=== PATIENT | female | born 1960 | race Caucasian/White ===

== ENCOUNTER → 2018-04-21 09:43 | Outpatient (CLI) | payer OTHER, SELFPAY ==
--- NOTE | 2018-04-21 10:15 | EKG12_ITS ---
Test Reason : PRE OP Blood Pressure : / mmHG Vent. Rate : 069 BPM Atrial Rate : 069 BPM P-R Int : 158 ms QRS Dur : 078 ms QT Int : 426 ms P-R-T Axes : 067 008 003 degrees QTc Int : 456 ms Normal sinus rhythm Normal ECG Confirmed by PANKAJ MITCHELL, BIRDIE ([id number]), avid editor HARMONY GARCIA ([id number] on 04/25/2018 10:53:22 AM Referred By: Jourdan Alas Confirmed By:BIRDIE LIRA MD
[2018-04-21 11:43] LABS: Hematocrit 44.4 % (37-47); Hemoglobin 14.7 g/dl (12.0-15.0); Mean Corp Hgb Conc 33.1 g/gl (32-36); Mean Corpuscular Hgb 29.3 pg (27.0-32.0); Mean Corpuscular Volume 88.4 fL (81-99); Mean Platelet Vol. 11.1 fl (6.2-12.0); Platelet Count 276 K/mm3 (150-450); RBC Distribution Width CV 13.4 % (11.6-14.6); RBC Distribution Width SD 42.8 fl (35.1-43.9); Red Blood Count 5.02 M/mm3 (4.2-5.4)
[2018-04-21 11:44] LABS: Scan Indicated on CBC? Y/N NO
[2018-04-21 12:06] LABS: Anion Gap 7 (5-15); BUN 16 mg/dL (7-18); BUN/Creat Ratio 22.5 RATIO (10-20); Chloride 105 mmol/L (98-107); Creatinine, Serum 0.71 mg/dL (0.55-1.02); EST Glomerular Filtration Rate 89 mL/min (>60); Est Glom Filt Rate - Afr Amer 108 mL/min (>60); Glucose 86 mg/dL (74-106); Potassium 4.4 mmol/L (3.5-5.1); Sodium Level 141 mmol/L (136-145)
== END ==
PROVIDERS: Family Provider Internal Medicine; PCP Internal Medicine; Referring Provider Physician Assistant; Visit Provider Physician Assistant
DX: Z01.818 Encounter for other preprocedural examination (principal); Z01.810 Encounter for preprocedural cardiovascular examination
CPT/HCPCS: 36415; 80048; 85027; 93005

== ENCOUNTER → 2019-08-15 12:09 | Outpatient (CLI) | payer OTHER, SELFPAY ==
--- NOTE | 2019-08-15 12:12 | CT_ITS ---
STUDY: CT MAXILLOFACIAL SINUSES REASON FOR EXAM: Female, 59 years old. CHRONIC SINUSITIS, HX BROKEN NOSE -- GABE PROTOCOL RADIATION DOSAGE (If Supplied By Facility): CTDIvol = ( 33.06 ) mGy, DLP = ( 738.81 ) mGycm TECHNIQUE: The patient was scanned in a multi detector CT scanner. High resolution axial imaging was performed without the administration of intravenous contrast material. Sagittal and coronal images were reconstructed. Individualized dose optimization techniques were used for this CT. COMPARISON: None. FINDINGS: FRONTAL SINUSES: Normal aeration, without mucosal inflammatory disease. ETHMOIDAL SINUSES: Normal aeration, without mucosal inflammatory disease. MAXILLARY SINUSES: Partial opacification of the right maxillary sinus. SPHENOIDAL SINUSES: Minimal mucosal thickening along the posterior aspect of the sphenoid sinus on the left side. Mucosal thickening of the right ostiomeatal complex. Normal bilateral middle turbinates. There is hypertrophy of the bilateral inferior nasal turbinates. There is a left sided nasal septal deviation, but without a nasal septal spur. There is patency of the bilateral nasal airways. The visualized osseous structures are normal. The visualized bilateral orbital contents are normal. CT/Sinus/Facial Bone IMPRESSION: Partial opacification of the right maxillary sinus and compromise of the right ostiomeatal complex. Mild degree of the nasal septal deviation towards the left side of the midline. Minimal mucosal thickening along the posterolateral aspect of the sphenoid sinus on the left side. Electronically Signed: Josue Sanchez, at 15:14 EST , Service support ,
== END ==
PROVIDERS: PCP Internal Medicine; Referring Provider Otolaryngology; Visit Provider Otolaryngology
DX: J32.2 Chronic ethmoidal sinusitis (principal)
CPT/HCPCS: 70486

== ENCOUNTER → 2019-09-11 13:19 | Outpatient (CLI) | payer OTHER, SELFPAY ==
[2019-09-11 13:38] LABS: Absolute Lymphocyte Count 2.91 X10^3/uL (0.83-4.51); Absolute Neutrophil Count 4.3 X10^3/uL (2.0-7.7); Basophil# 0.07 X10^3/uL; Basophil% 0.9 % (0-1); Eosinophil# 0.09 X10^3/uL; Eosinophils% 1.1 % (0-5); Hematocrit 43.8 % (37-47); Hemoglobin 14.2 g/dL (12.0-15.0); Lymphocyte # 2.91 X10^3/ul (4.0); Mean Corp Hgb Conc 32.4 g/dL (32-36); Mean Corpuscular Hgb 28.6 pg (27.0-32.0); Mean Corpuscular Volume 88.1 fL (81-99); Monocyte# 0.51 X10^3/uL; Monocyte% 6.5 % (0-10); NRBC Flagged by Analyzer 0 % (0-5); Neutrophil # 4.25 X10^3/uL (2.7-7.7); Platelet Count 288 K/mm3 (150-450); RBC Distribution Width CV 12.6 % (11.6-14.6); RBC Distribution Width SD 40.5 fl (35.1-43.9); Red Blood Count 4.97 M/mm3 (4.2-5.4); White Blood Count 7.9 K/mm3 (4.4-11.0)
--- NOTE | 2019-09-11 13:39 | EKG12_ITS ---
Test Reason : PRE-OP Blood Pressure : / mmHG Vent. Rate : 078 BPM Atrial Rate : 078 BPM P-R Int : 156 ms QRS Dur : 072 ms QT Int : 376 ms P-R-T Axes : 054 -21 000 degrees QTc Int : 428 ms Normal sinus rhythm Nonspecific ST and T wave abnormality Abnormal ECG Confirmed by PANKAJ MITCHELL, BIRDIE ([id number]), graphics editor MARIA C GRACE ([id number]) on 09/12/2019 10:33:25 AM Referred By: Veronica Randle Confirmed By:BIRDIE LIRA MD
[2019-09-11 13:58] LABS: Anion Gap 7 (5-15); BUN 15 mg/dL (7-18); BUN/Creat Ratio 15.8 RATIO (10-20); Calcium,Total 8.6 mg/dL (8.5-10.1); Chloride 105 mmol/L (98-107); Creatinine, Serum 0.95 mg/dL (0.55-1.02); EST Glomerular Filtration Rate 63 mL/min (>60); Est Glom Filt Rate - Afr Amer 77 mL/min (>60); Glucose 115 mg/dL (74-106); Potassium 3.9 mmol/L (3.5-5.1); Sodium Level 141 mmol/L (136-145)
== END ==
PROVIDERS: PCP Internal Medicine; Referring Provider Registered Nurse; Visit Provider Registered Nurse
DX: Z01.818 Encounter for other preprocedural examination (principal)
CPT/HCPCS: 36415; 80048; 85025; 93005

== ENCOUNTER → 2020-05-27 09:01 | Outpatient (CLI) | payer OTHER, SELFPAY ==
[2017-03-01 07:27] VITALS: BMI 28.1
[2020-05-27 09:29] LABS: Absolute Lymphocyte Count 2.74 X10^3/uL (0.83-4.51); Absolute Neutrophil Count 3.4 X10^3/uL (2.0-7.7); Basophil# 0.06 X10^3/uL; Basophil% 0.9 % (0-1); Eosinophil# 0.08 X10^3/uL; Eosinophils% 1.2 % (0-5); Hematocrit 46.6 % (37-47); Hemoglobin 14.5 g/dL (12.0-15.0); Lymphocyte # 2.74 X10^3/ul (4.0); Lymphocyte % 40.7 % (19-41); Mean Corp Hgb Conc 31.1 g/dL (32-36); Mean Corpuscular Hgb 28.2 pg (27.0-32.0); Mean Corpuscular Volume 90.5 fL (81-99); Mean Platelet Vol. 10.4 fl (6.2-12.0); Monocyte# 0.49 X10^3/uL; Monocyte% 7.3 % (0-10); NRBC Flagged by Analyzer 0 % (0-5); Neutrophil # 3.36 X10^3/uL (2.7-7.7); Neutrophil % 49.8 % (47-70); Platelet Count 297 K/mm3 (150-450); RBC Distribution Width CV 12.4 % (11.6-14.6); RBC Distribution Width SD 41.1 fl (35.1-43.9); Red Blood Count 5.15 M/mm3 (4.2-5.4); White Blood Count 6.7 K/mm3 (4.4-11.0)
[2020-05-27 10:05] LABS: Anion Gap 3 (5-15); BUN 9 mg/dL (7-18); BUN/Creat Ratio 13.1 RATIO (10-20); Calcium,Total 9.5 mg/dL (8.5-10.1); Chloride 106 mmol/L (98-107); Creatinine, Serum 0.68 mg/dL (0.55-1.02); EST Glomerular Filtration Rate 92 mL/min (>60); Est Glom Filt Rate - Afr Amer 112 mL/min (>60); Glucose 91 mg/dL (74-106); Potassium 3.9 mmol/L (3.5-5.1); Sodium Level 141 mmol/L (136-145)
== END ==
PROVIDERS: PCP Internal Medicine; Referring Provider Registered Nurse; Visit Provider Registered Nurse
DX: Z01.818 Encounter for other preprocedural examination (principal)
CPT/HCPCS: 36415; 80048; 85025

== ENCOUNTER 2020-08-26 10:00 | Outpatient (RCR) | payer BC, SELFPAY ==
--- NOTE | 2020-07-12 12:09 | HP.OTEVAL_ITS ---
Patient's Visit Information ALEX ORTIZ is a 60 year old F, referred to Occupational Therapy by Dr. Jeffrey Kelly MD, with a diagnosis of CMC arthritis left. Date of Evaluation: 07/12/20 Occupational Therapist: Wilma Caceres, FELICER/Adolfo, CHT - Subjective This 60 year old female was seen for OT eval with dx. of left unilateral primary osteoarthritis of left carpometacarpal joint (CMC arthroplasty)- pt states DOS was 2019. Pt states she struggled with thumb pain for about 2 years. Pt arrives today in need of custom protective orthosis. Pt is right handed and is currently limited with all ADls and IADLS. - Pain left hand 8 Pain Intensity Range: 3, 8 - ROM Wrist: right 65/70 left NT CMC: right 15 left NT MP: right 60 left NT IP: right 65 left NT ROM Comments: Therapist will test left wrist and thumb ROM at week 4 - Strength Shingle Sawyer: right 43# left NT Lateral Pinch: right 12# left NT Tripod Pinch: right 12# Left NT - Sensation Sensation Comments: pt state left thumb is numb but test at 2.83 monofilament indicating normal sensation - Quick DASH-Disab of Arm,Shoulder& Hand Quick DASH Score: 84.0900 - Goals Goal:100% adherence to protocol: Yes Comment: CMC arthroplasty Goal:Daily scar massage when approriate: Yes Goal:ROM equal to unaffected hand: Yes Goal:Shingle Sawyer/Pinch strength at least 75% of unaffected hand: Yes Goal:No pain with affected hand use: Yes Goal:PIP Circumferences equal to unaffected hand: Yes Goal:Full use of affected hand in daily activities including: Yes Goal:Improvement in sensation documented by [place]-Elisabet: Yes Goal:Decrease scar hypersensitivity: Yes - Rehabilitation General Assessment: Pt arrives to session 4 weeks s/p from right CMC arthroplasty. pt demo limited ROM and newly healing structures to allow pt to perform ADls and IADLs. Pt would benefit from skilled OT services 1-2x week for 8 weeks. Pt insurance approved eval only at this time- with approval therapist shira. custom orthosis to provide support and protection while CMC arthroplasty is healing. Therapist ed.. pt on following CMC arthroplasty protocol. pt demo understanding and agree to POC. Rehabilitation Potential: Excellent - Anticipated Interventions A/AAROM/PROM, Strengthening, Edema Control, Scar Care, Triggerpoint Release, Modalities, Orthoses, Joint Protection/Energy Conservation, Ergonomic Education, Fine Motor Coord/James - Visit Plan Frequency: 1-2x /Week Duration: 2 Months General Plan: initiate supported cmc right thumb ROM TEXT: Thank you for the opportunity to evaluate your patient. For Medicare and Medicare HMO plans, please review the plan of care and approve it. It will need to be FAXED BACK to us at [phone] for Medicare purposes. Please let me know if there are questions or concerns regarding this plan of care. Physician Signature: Date:
--- NOTE | 2020-08-05 11:46 | HP.OTREVAL ---
Dr. Jeffrey Kelly MD, It has been my pleasure to treat ALEX ORTIZ over the last 5 visits for CMC arthritis left. Please see the progress note below for an update on the occupational therapy plan of care! Subjective: pt is 7 weeks 3 days s/p from left CMC arthroplasty pt arrives with comfort cool cmc support and edema glove- pt reports she is performing her ex but still limited with medical customer service representative and use of left hand- Objective/Function: pt demo with limited composite fist - therapy has struggled with left hand edema and limited ROM-. pts left wrist ROM 35/45. IP flex 40. MP flex 30. pt demo with opposition to tip of LF. Due to edema of left hand but is controlled by edema glove. therpist has initiated PRE with medical customer service representative wrist and biceps Plan Frequency: 1-2x /Week Duration: 3 Weeks Plan: cont with PRE with BTE and UB ex with free wts as pt michael. edema control as needed Goals - Goals Patient Goals: Regain Mobility, Decrease Pain, Use Hand/Wrist/Arm Normally Again Goal:100% adherence to protocol: Yes Goal:Daily scar massage when approriate: Yes Goal:ROM equal to unaffected hand: Yes Goal:Magnetizer/Pinch strength at least 75% of unaffected hand: Yes Goal:No pain with affected hand use: Yes Goal:PIP Circumferences equal to unaffected hand: Yes Goal:Full use of affected hand in daily activities including: Yes Goal:Improvement in sensation documented by [place]-Elisabet: Yes Goal:Decrease scar hypersensitivity: Yes Anticipated Interventions Anticipated Interventions: A/AAROM/PROM, Strengthening, Edema Control, Scar Care, Triggerpoint Release, Modalities, Orthoses, Joint Protection/Energy Conservation, Ergonomic Education, Fine Motor Coord/James Please do not hesitate to contact me at [phone] by phone or if you have questions or concerns regarding this new plan of care! Sincerely, Wilma Caceres, FELICER/L, CHT
--- NOTE | 2020-08-12 10:34 | OTREVAL_ITS ---
Dr. Jeffrey Kelly MD, It has been my pleasure to treat ALEX ORTIZ over the last 6 visits for CMC arthritis left. Please see the progress note below for an update on the occupational therapy plan of care! Subjective: Pt arrives at 8 weeks s/p from CMC arthroplasty pt states she continues to have swelling- states she is limited with wrist ROM that limits her ind. with ADLs and IADLS- Objective/Function: right hawk missile air defense artillery strength 55#. left hawk missile air defense artillery strength is 20#. pt has been strengthening for about two weeks-. pt states she feels limited wrist flex is limiting her ind. with BADls. but pt is working on PROM and PRE to gain motion. wrist ROM 50/45. left wrist 60/70. left thumb CMC 30*. left thumb MP 30*. left thumb IP 65. opposition to base of LF. with pts swelling has limited her progress with returning to her IND. level- Plan Plan: cont with PRE with BTE and UB ex with free wts as pt michael. edema control as needed Goals - Goals Patient Goals: Regain Mobility, Decrease Pain, Use Hand/Wrist/Arm Normally Again Goal:100% adherence to protocol: Yes Goal:Daily scar massage when approriate: Yes Goal:ROM equal to unaffected hand: Yes Goal:Heat And Vent Aircraft Mechanic/Pinch strength at least 75% of unaffected hand: Yes Goal:No pain with affected hand use: Yes Goal:PIP Circumferences equal to unaffected hand: Yes Goal:Full use of affected hand in daily activities including: Yes Goal:Improvement in sensation documented by [place]-Elisabet: Yes Goal:Decrease scar hypersensitivity: Yes Anticipated Interventions Anticipated Interventions: A/AAROM/PROM, Strengthening, Edema Control, Scar Care, Triggerpoint Release, Modalities, Orthoses, Joint Protection/Energy Conservation, Ergonomic Education, Fine Motor Coord/James Please do not hesitate to contact me at [phone] by phone or if you have questions or concerns regarding this new plan of care! Sincerely, Wilma Caceres, OTR/L, CHT
--- NOTE | 2020-08-26 10:34 | HP.OTDCSUM ---
It has been my pleasure to treat ALEX ORTIZ under orders from Dr. Jeffrey Kelly MD, for the diagnosis of CMC arthritis left for a total of 7 visit(s). Please see the following information for a summary of their discharge status. % Improvement: 80 Objective/Function: left collection administrator strength has increased to 28#. left wrist 60/70. left thumb CMC 30*. left thumb MP 30*. left thumb IP 65. opposition to base of LF. Pt states this am she was able to make a tight fist and has noticed a decrease in edema. pts swelling had limited her progress with returning to her IND. but has now reported increase ind. therapist ed. pt to cont with strengthening use of t-putty, spone- Therapist ed.pt on joint protection melanie. to provide support and protection to jont structures. Patient Goals: Regain Mobility, Decrease Pain, Use Hand/Wrist/Arm Normally Again Goal:100% adherence to protocol: Yes Goal:Daily scar massage when approriate: Yes Goal:ROM equal to unaffected hand: Yes Goal:Transportation Museum Helper/Pinch strength at least 75% of unaffected hand: Yes Goal:No pain with affected hand use: Yes Goal:PIP Circumferences equal to unaffected hand: Yes Goal:Full use of affected hand in daily activities including: Yes Goal:Improvement in sensation documented by [place]-Elisabet: Yes Goal:Decrease scar hypersensitivity: Yes Plan: cont with PRE with BTE and UB ex with free wts as pt michael. edema control as needed Discharge Comments: pt has done well with her left cmc arthroplasty- pt initially struggled with swelling that limited a composite fist but is now better- pt reports she is DEXTER with all ADLs and IADLs. Therapist rec'd cont. use of resistive putty/sponge to strengthen collection administrator and pinch. pt demo understanding- therapist ed. pt to cont with joint protection to provide less stress to joints. pt demo understanding and agree to POC. If there are questions or concerns regarding this patient's occupational therapy, please fell free to call me at [phone]. Thank you for the referral of this patient. Sincerely, Wilma Caceres, OTR/L, CHT
== END 2020-08-26 19:00 | disposition home or self-care (01) ==
LOC: OT 10:00
PROVIDERS: PCP Internal Medicine; Referring Provider Specialist; Visit Provider Specialist
DX: M18.12 Unilateral primary osteoarthritis of first carpometacarpal joint, left hand (principal)
CPT/HCPCS: 97110; 97140; 97166; 97530

== ENCOUNTER 2020-09-17 13:48 | Outpatient (RCR) | payer BC, SELFPAY ==
[2017-03-01 07:27] VITALS: BMI 28.1
[2020-09-17] MEDS: COVID-19 VACC, MRNA(PFIZER)/PF 30 MCG/0.3 ML SYRINGE IM (07:17)
[2020-10-08] MEDS: COVID-19 VACC, MRNA(PFIZER)/PF 30 MCG/0.3 ML SYRINGE IM (06:53)
== END 2020-09-17 23:59 ==
LOC: IMMUN 13:48
PROVIDERS: PCP Internal Medicine; Visit Provider Family Medicine
DX: Z23 Encounter for immunization (principal)
CPT/HCPCS: 0001A; 0002A; 91300

== ENCOUNTER → 2022-08-17 | Outpatient (CLI) | payer BC, SELFPAY ==
[2022-08-17 13:57] VITALS: BP 148/67; PULSE 85; TEMP 36.2; O2SAT 94; BMI 28.3
[2022-08-17] MEDS: 0.9% NaCl Peripheral Flush Adult/Peds IV (14:07)
[2022-08-17] MEDS: Zoledronic Acid 5 MG 100 ML 300 MG IV (14:11)
[2022-08-17 14:36] VITALS: BP 132/72; PULSE 71; TEMP 36.1; O2SAT 94
== END | disposition home or self-care (01) ==
LOC: MEDOUTP 13:13
PROVIDERS: PCP Internal Medicine; Referring Provider Internal Medicine Endocrinology, Diabetes & Metabolism; Visit Provider Internal Medicine Endocrinology, Diabetes & Metabolism
DX: M81.0 Age-related osteoporosis without current pathological fracture (principal)
CPT/HCPCS: 96365; A4216; J3489

== ENCOUNTER → 2023-08-21 | Outpatient (CLI) | payer MEDICARE, SELFPAY ==
--- OUTSIDE RECORDS SUMMARY | 2023-08-21 07:46 | XMS RPT_ITS | CCD ---
Author Name Unknown Address [id number] | [address] [place] [address] Organization [facility] Care Team Providers Care 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 Name Role Phone Jayro Hutchinson Primary Care Provider [phone] YUN MITCHELL, DR DIAL Primary Care Physician Aguilar PT, Cece Unavailable Unavailable Jayro Hutchinson MD Primary Care Provider YUN MITCHELL, DR DIAL Attending Unavailable YUN MITCHELL, DR DIAL Primary Care Unavailable HARI CARDONA-JUANITA, MONTEZ Admitting Unavailab nydia HUTCHINSON MD, DR DIAL Primary Care Unavailable ROSE PEARCE, DR SAWYER Attending Unavailable ROSE PEARCE, DR SAWYER Referring Unavailable TALAMPAS, JAYRO D Attending Unavailable TALAMPAS, JAYRO D Primary Care Unavailable TALAMPAS, JAYRO D Primary Care Unavailable PALOMA COLUNGA Referring Unavailable TALAMPAS, JAYRO D Primary Care Unavailable TALAMPAS, JAYRO D Primary Care Unavailable TALAMPAS, JAYRO D Attending Unavailable TALAMPAS, JAYRO D Referring Unavailable TALAMPAS, JAYRO D Primary Care Unavailable TALAMPAS, JAYRO D Referring Unavailable TALAMPAS, JAYRO D Primary Care Unavailable TALAMPAS, JAYRO D Primary Care Unavailable TALAMPAS, JAYRO D Referring Unavailable TALAMPAS, JAYRO D Primary Care Unavailable Allergies Allergy Classification Reported Allergen(s) Allergy Type Date of Onset Reaction(s) Facility (1 source) Acetaminophen / HYDROcodone Drug Allergy 0 [place] (2 sources) Buprenorphine; Translations: [buprenorphine] Drug Allergy 0 [place] (1 source) Cat Hair Extract Drug Allergy 0 [place] (19 sources) Codeine; Translations: [codeine] Drug Allergy 5 [place] (1 source) Lactose (non-medical use) Propensity to adverse reactions to drug 0 [place] (2 sources) Meperidine; Translations: [meperidine] Drug Allergy 0 [place] (18 sources) Morphine; Translations: [MORPHINE] Drug Allergy 5 [place] (2 sources) Propoxyphene; Translations: [propoxyphene] Drug Allergy 0 [place] (17 sources) Buprenorphine; Translations: [BUPRENORPHINE HCL] Drug Allergy 5 [facility] (17 sources) Cat; Translations: [CATS] Propensity to adverse reactions 5 [facility] (17 sources) Lactose; Translations: [LACTOSE] Drug Allergy 5 Diarrhea, GI Upset [facility] (17 sources) Meperidine; Translations: [MEPERIDINE HCL] Drug Allergy 5 [facility] (17 sources) Propoxyphene N-Acetaminophen; Translations: [PROPOXYPHENE N-ACETAMINOPHEN] Propensity to adverse reactions 5 [facility] (1 source) Acetaminophen / HYDROcodone; Translations: [acetaminophen-hy drocodone] Drug Allergy [facility] (5 sources) zoledronic acid; Translations: [ZOLEDRONIC TLIK-[id number] ER] Drug Allergy 3 Other: See Comments [facility] Medications Current Medications Medication Drug Class(es) Dates Sig (Normalized) Sig (Original) amoxicillin 875 mg / clavulanate 125 mg oral tablet (1 source) Penicillin-class Antibacterial Start: 06-17-2022 End: 06-27-2022 take 1 tablet by mouth twice daily amoxicillin-clav ulanic acid (AUGMENTIN) 875-125 mg per tablet Take 1 tablet by mouth twice daily for 10 days. 20 tablet 0 06/17/2022 06/27/2022 Active Completed/Discontinued Medications Medication Drug Class(es) Dates Sig (Normalized) Sig (Original) acyclovir 0.05 mg/mg topical ointment (19 sources) Herpesvirus Nucleoside Analog DNA Polymerase Inhibitor, Herpes Simplex Virus Nucleoside Analog DNA Polymerase Inhibitor, Herpes Zoster Virus Nucleoside Analog DNA Polymerase Inhibitor Start: 07-07-2019 End: 03-01-2023 acyclovir (ZOVIRAX) 5 % ointment Indications: Recurrent cold sores Apply 1 application to affected area five times daily. as needed 5 g 1 03/01/2023 Active Problems Active Problems Problem Classification Problem Date Documented Date Episodic/Chronic Diabetes mellitus without complication (2 sources) Hyperglycemia; Translations: [Hyperglycemia, unspecified] Onset: 08-19-2022 Episodic Disorders of lipid metabolism (1 source) Raised low density lipoprotein cholesterol; Translations: [Pure hypercholesterolemia, unspecified] 03-01-2023 Chronic Esophageal disorders (2 sources) Gastroesophageal reflux disease without esophagitis; Translations: [Gastro-esophageal reflux disease without esophagitis] Onset: 08-19-2022 Chronic Headache; including migraine (16 sources) Migraine without aura; Translations: [Migraine without aura, not intractable, without status migrainosus] Onset: 09-22-2007 01-24-2019 Chronic Nutritional deficiencies (4 sources) Vitamin D deficiency; Translations: [Vitamin D deficiency, unspecified] Onset: 08-28-2022 Chronic Osteoporosis (4 sources) Senile osteoporosis; Translations: [Age-related osteoporosis without current pathological fracture] Onset: 08-28-2022 Chronic Other aftercare (3 sources) Patient encounter status; Translations: [Other half-way (current) drug therapy] Episodic Other circulatory disease (1 source) Elevated blood-pressure reading without diagnosis of hypertension; Translations: [Elevated blood-pressure reading, without diagnosis of hypertension] 03-01-2023 Episodic Other connective tissue disease (16 sources) Calcaneal spur; Translations: [Calcaneal spur, unspecified foot] 06-09-2005 Episodic Other connective tissue disease (1 source) Pain of toes of bilateral feet; Translations: [Pain in right toe(s)] 03-01-2023 Episodic Other diseases of bladder and urethra (1 source) Bladder irritability; Translations: [Other specified disorders of bladder] Chronic Other liver diseases (1 source) Steatosis of liver; Translations: [Fatty (change of) liver, not elsewhere classified] Chronic Other liver diseases (1 source) Fatty (change of) liver, not elsewhere classified; Translations: [Hepatic steatosis] Onset: 08-28-2022 Chronic Other non-traumatic joint disorders (1 source) Pain in right knee; Translations: [Pain in joint, lower leg] Episodic Other non-traumatic joint disorders (1 source) Hip pain; Translations: [Pain in left hip] Episodic Other nutritional; endocrine; and metabolic disorders (1 source) Hypocalcemia; Translations: [Hypocalcemia] Onset: 08-19-2022 Chronic Other nutritional; endocrine; and metabolic disorders (1 source) Hypocalcemia 08-19-2022 Chronic Other upper respiratory disease (17 sources) Allergic rhinitis; Translations: [Allergic rhinitis, unspecified] 04-19-2015 Chronic Other upper respiratory disease (1 source) Chronic rhinitis; Translations: [Unspecified sinusitis (chronic)] Chronic Other upper respiratory disease (1 source) Nasal congestion; Translations: [Nasal congestion] Episodic Other upper respiratory infections (2 sources) Acute sinusitis; Translations: [Other acute sinusitis] Episodic Residual codes; unclassified (2 sources) Postmenopausal state; Translations: [Asymptomatic menopausal state] Episodic Viral infection (2 sources) Recurrent herpes simplex labialis; Translations: [Herpesviral vesicular dermatitis] Episodic Past or Other Problems Problem Classification Problem Date Documented Date Episodic/Chronic Hemorrhoids (16 sources) Internal hemorrhoids; Translations: [Other hemorrhoids] Onset: 9 12-11-2008 Episodic Immunizations and screening for infectious disease (3 sources) Vaccination needed; Translations: [Encounter for immunization] Onset: 3 Episodic Other aftercare (1 source) Other half-way (current) drug therapy; Translations: [Encounter for long-term current use of medication] Onset: 3 Episodic Other and unspecified benign neoplasm (16 sources) Benign neoplasm of colon; Translations: [Benign neoplasm of colon, unspecified] Onset: 9 12-11-2008 Episodic Other bone disease and musculoskeletal deformities (16 sources) Osteopenia; Translations: [Other specified disorders of bone density and structure, unspecified site] Onset: 2 11-11-2011 Episodic Other connective tissue disease (16 sources) Achilles tendinitis; Translations: [Achilles tendinitis, unspecified leg] Onset: 2 09-15-2011 Episodic Other non-traumatic joint disorders (1 source) Pain in left hip; Translations: [Acute hip pain, left] Onset: 2 Episodic Other screening for suspected conditions (not mental disorders or infectious disease) (20 sources) Electrocardiogram abnormal; Translations: [Patient encounter status] Onset: 9 Episodic Spondylosis; intervertebral disc disorders; other back problems (3 sources) Backache; Translations: [Dorsalgia, unspecified] Onset: 3 Episodic Results Test Name Value Interpretation Reference Range Facil ity Vital Signs Date Time Vital Sign Value Performing Clinician Facility 03-01-2023 14:04-0400 Diastolic blood pressure 70 mm[Hg] Jayro Hutchinson MD Work Phone: [facility] 03-01-2023 14:04-0400 Systolic blood pressure 142 mm[Hg] Jayro Hutchinson MD Work Phone: [facility] 03-01-2023 13:14-0400 Body height 154.5 cm Jayro Hutchinson MD Work Phone: [facility] 03-01-2023 13:14-0400 Body temperature 97.81 [degF] Jayro Hutchinson MD Work Phone: [facility] 03-01-2023 13:14-0400 Body weight 69.72 kg Jayro Hutchinson MD Work Phone: [facility] 03-01-2023 13:14-0400 Heart rate 78 /min Jayro Hutchinson MD Work Phone: [facility] 03-01-2023 13:14-0400 Respiratory rate 18 /min Jayro Hutchinson MD Work Phone: [facility] 03-01-2023 13:14-0400 SaO2% (BldA) [Mass fraction] 96 % Jayro Hutchinson MD Work Phone: [facility] 10-18-2022 08:07-0400 Body temperature 97.81 [degF] Carey Briscoe APRN.SMT MACHINE OPERATOR Work Phone: [facility] 10-18-2022 08:07-0400 Body weight 69.49 kg Carey Briscoe APRN.SMT MACHINE OPERATOR Work Phone: [facility] 10-18-2022 08:07-0400 Diastolic blood pressure 76 mm[Hg] Carey Briscoe APRN.SMT MACHINE OPERATOR Work Phone: [facility] 10-18-2022 08:07-0400 Heart rate 86 /min Carey Briscoe APRN.SMT MACHINE OPERATOR Work Phone: [facility] 10-18-2022 08:07-0400 Respiratory rate 16 /min Carey Briscoe APRN.SMT MACHINE OPERATOR Work Phone: [facility] 10-18-2022 08:07-0400 SaO2% (BldA) [Mass fraction] 97 % Carey Briscoe APRN.SMT MACHINE OPERATOR Work Phone: [facility] 10-18-2022 08:07-0400 Systolic blood pressure 126 mm[Hg] Carey Briscoe APRN.SMT MACHINE OPERATOR Work Phone: [facility] 08-20-2022 07:36-0500 Body temperature 97.34 [degF] MONTEZ NORIEGA GRAIN I FARMWORKER-SMT MACHINE OPERATOR [facility] 08-20-2022 07:36-0500 Diastolic Blood Pressure Non-Invasive 77 1 MONTEZ NORIEGA GRAIN I FARMWORKER-SMT MACHINE OPERATOR [facility] 08-20-2022 07:36-0500 Heart rate 84 /min MONTEZ NORIEGA GRAIN I FARMWORKER-SMT MACHINE OPERATOR [facility] 08-20-2022 07:36-0500 Reason For Taking VItal Signs MONTEZ NORIEGA GRAIN I FARMWORKER-SMT MACHINE OPERATOR [facility] 08-20-2022 07:36-0500 Respiratory rate 18 /min MONTEZ NORIEGA GRAIN I FARMWORKER-SMT MACHINE OPERATOR [facility] 08-20-2022 07:36-0500 Systolic Blood Pressure Non-Invasive 127 1 MONTEZ NORIEGA GRAIN I FARMWORKER-SMT MACHINE OPERATOR [facility] 08-20-2022 06:52-0500 Body weight 70.9 kg MONTEZ NORIEGA GRAIN I FARMWORKER-SMT MACHINE OPERATOR [facility] 08-20-2022 02:59-0500 Body temperature 98.6 [degF] MONTEZ HARI GRAIN I FARMWORKER-SMT MACHINE OPERATOR [facility] 08-20-2022 02:59-0500 Diastolic Blood Pressure Non-Invasive 74 1 MONTEZ NORIEGA GRAIN I FARMWORKER-SMT MACHINE OPERATOR [facility] 08-20-2022 02:59-0500 Heart rate 88 /min MONTEZ NORIEGA GRAIN I FARMWORKER-SMT MACHINE OPERATOR [facility] 08-20-2022 02:59-0500 Reason For Taking VItal Signs MONTEZ NORIEGA GRAIN I FARMWORKER-SMT MACHINE OPERATOR [facility] 08-20-2022 02:59-0500 Respiratory rate 18 /min MONTEZ NORIEGA GRAIN I FARMWORKER-SMT MACHINE OPERATOR [facility] 08-20-2022 02:59-0500 Systolic Blood Pressure Non-Invasive 116 1 MONTEZAKOSUA NORIEGA GRAIN I FARMWORKER-SMT MACHINE OPERATOR [facility] 08-19-2022 23:55-0500 Body temperature 98.6 [degF] MONTEZ NORIEGA GRAIN I FARMWORKER-SMT MACHINE OPERATOR [facility] 08-19-2022 23:55-0500 Diastolic Blood Pressure Non-Invasive 69 1 MONTEZ NORIEGA GRAIN I FARMWORKER-SMT MACHINE OPERATOR [facility] 08-19-2022 23:55-0500 Heart rate 87 /min MONTEZ NORIEGA GRAIN I FARMWORKER-SMT MACHINE OPERATOR [facility] 08-19-2022 23:55-0500 Reason For Taking VItal Signs MONTEZ NORIEGA GRAIN I FARMWORKER-SMT MACHINE OPERATOR [facility] 08-19-2022 23:55-0500 Respiratory rate 16 /min MONTEZ FOITH GRAIN I FARMWORKER-SMT MACHINE OPERATOR [facility] 08-19-2022 23:55-0500 Systolic Blood Pressure Non-Invasive 116 1 MONTEZ FOITH GRAIN I FARMWORKER-SMT MACHINE OPERATOR [facility] 08-19-2022 19:44-0500 Heart rate 96 /min MONTEZ FOITH GRAIN I FARMWORKER-SMT MACHINE OPERATOR [facility] 08-19-2022 15:35-0500 Heart rate 86 /min MONTEZ FOITH GRAIN I FARMWORKER-SMT MACHINE OPERATOR [facility] 08-19-2022 05:39-0500 Body weight 70.8 kg MONTEZ FOITH GRAIN I FARMWORKER-SMT MACHINE OPERATOR [facility] 08-18-2022 20:52-0500 Body height 155 cm MONTEZ FOITH GRAIN I FARMWORKER-SMT MACHINE OPERATOR [facility] 08-18-2022 20:52-0500 Body weight 68.2 kg MONTEZ FOITH GRAIN I FARMWORKER-SMT MACHINE OPERATOR [facility] 08-18-2022 20:52-0500 Body weight 28.39 kg/m2 MONTEZ FOITH GRAIN I FARMWORKER-SMT MACHINE OPERATOR [facility] 08-18-2022 20:44-0500 Heart rate 90 /min MONTEZ FOITH GRAIN I FARMWORKER-SMT MACHINE OPERATOR [facility] 08-18-2022 19:58-0500 Heart rate 99 /min MONTEZ FOITH GRAIN I FARMWORKER-SMT MACHINE OPERATOR [facility] 08-18-2022 15:40-0500 Body height 155 cm MONTEZ FOITH GRAIN I FARMWORKER-SMT MACHINE OPERATOR [facility] 08-18-2022 15:40-0500 Heart rate 106 /min MONTEZ NORIEGA GRAIN I FARMWORKER-SMT MACHINE OPERATOR [facility] 06-17-2022 08:19-0500 Body temperature 98.6 [degF] Krystle Lul GRAIN I FARMWORKER.SMT MACHINE OPERATOR Work Phone: [facility] 06-17-2022 08:19-0500 Body weight 70.31 kg Krystle Winslow GRAIN I FARMWORKER.SMT MACHINE OPERATOR Work Phone: [facility] 06-17-2022 08:19-0500 Diastolic blood pressure 80 mm[Hg] Krystle Winslow GRAIN I FARMWORKER.SMT MACHINE OPERATOR Work Phone: [facility] 06-17-2022 08:19-0500 Heart rate 106 /min Krystle Lul GRAIN I FARMWORKER.SMT MACHINE OPERATOR Work Phone: [facility] 06-17-2022 08:19-0500 Respiratory rate 16 /min Krystle Winslow GRAIN I FARMWORKER.SMT MACHINE OPERATOR Work Phone: [facility] 06-17-2022 08:19-0500 SaO2% (BldA) [Mass fraction] 97 % Krystle Winslow GRAIN I FARMWORKER.SMT MACHINE OPERATOR Work Phone: [facility] 06-17-2022 08:19-0500 Systolic blood pressure 134 mm[Hg] Krystle Winslow GRAIN I FARMWORKER.SMT MACHINE OPERATOR Work Phone: [facility] 04-13-2022 08:55-0400 Body temperature 98.8 [degF] Paloma Praisler-Wood GRAIN I FARMWORKER.SMT MACHINE OPERATOR Work Phone: [facility] 04-13-2022 08:55-0400 Body weight 72.03 kg Paloma Praisler-Wood GRAIN I FARMWORKER.SMT MACHINE OPERATOR Work Phone: [facility] 04-13-2022 08:55-0400 Diastolic blood pressure 82 mm[Hg] Paloma Praisler-Wood GRAIN I FARMWORKER.SMT MACHINE OPERATOR Work Phone: [facility] 04-13-2022 08:55-0400 Heart rate 93 /min Paloma Praisler-Wood GRAIN I FARMWORKER.SMT MACHINE OPERATOR Work Phone: [facility] 04-13-2022 08:55-0400 Respiratory rate 14 /min Paloma Praisler-Wood GRAIN I FARMWORKER.SMT MACHINE OPERATOR Work Phone: [facility] 04-13-2022 08:55-0400 SaO2% (BldA) [Mass fraction] 96 % Paloma Praisler-Wood GRAIN I FARMWORKER.SMT MACHINE OPERATOR Work Phone: [facility] 04-13-2022 08:55-0400 Systolic blood pressure 140 mm[Hg] Paloma Praisler-Wood GRAIN I FARMWORKER.SMT MACHINE OPERATOR Work Phone: [facility] 02-20-2022 08:01-0400 Body height 154.9 cm Jayro Hutchinson MD Work Phone: [facility] 02-20-2022 08:01-0400 Body weight 69.4 kg Jayro Hutchinson MD Work Phone: [facility] 02-20-2022 08:01-0400 Diastolic blood pressure 72 mm[Hg] Jayro Hutchinson MD Work Phone: [facility] 02-20-2022 08:01-0400 Heart rate 69 /min Jayro Hutchinson MD Work Phone: [facility] 02-20-2022 08:01-0400 SaO2% (BldA) [Mass fraction] 97 % Jayro Hutchinson MD Work Phone: [facility] 02-20-2022 08:01-0400 Systolic blood pressure 132 mm[Hg] Jayro Hutchinson MD Work Phone: [facility] 11-18-2021 13:43-0400 Body weight 72.12 kg Jolynn Romo GRAIN I FARMWORKER.POWERHOUSE MECHANIC HELPER Work Phone: [facility] 11-18-2021 13:43-0400 Diastolic blood pressure 82 mm[Hg] Jolynn Gonsalezs GRAIN I FARMWORKER.POWERHOUSE MECHANIC HELPER Work Phone: [facility] 11-18-2021 13:43-0400 Heart rate 76 /min Jolynn Romo APRN.POWERHOUSE MECHANIC HELPER Work Phone: [facility] 11-18-2021 13:43-0400 Respiratory rate 16 /min Jolynn Romo APRN.POWERHOUSE MECHANIC HELPER Work Phone: [facility] 11-18-2021 13:43-0400 Systolic blood pressure 138 mm[Hg] Jolynn Romo APRN.POWERHOUSE MECHANIC HELPER Work Phone: [facility] Encounters Encounter Date Encounter Type Care Provider Facility Start: 03-01-2023 End: 03-01-2023 ambulatory JAYRO HUTCHINSON Facility:[facility] Start: 03-01-2023 End: 03-01-2023 Patient encounter status Jayro Hutchinson MD Work Phone: [facility] Work Phone: Start: 03-01-2023 End: 03-01-2023 Periodic preventive med est patient 40-64yrs Jayro Hutchinson MD Work Phone: Internal Medicine [facility] Procedures Date Procedure Procedure Detail Performing Clinician Start: 01-20-2023 Lipid 1996 panel - S terry or Plasma Jayro Hutchinson MD Work Phone: Start: 10-18-2022 STREP A MOLECULAR (POC) Carey Briscoe APRN.SMT MACHINE OPERATOR Work Phone: Start: 09-21-2022 Mammography Mammograph y Coordinator Start: 08-28-2022 PFIZER-BIONTECH COVI D-19 BIVALENT BOOSTER VACCINE, AGE 12+ YR Jayro Hutchinson MD Work Phone: Start: 02-23-2022 Dxa bone density franny dy 1/> sites axial skel Jayro Hutchinson MD Work Phone: Start: 02-20-2022 Adult depression scr eening assessment Jayro Hutchinson MD Work Phone: Start: 11-18-2021 PFIZER-BIONTECH COVI D-19 VACCINE, AGE 12+ YR (THORPE TOP) Jolynn Romo APRN.POWERHOUSE MECHANIC HELPER Work Phone: Start: 09-19-2021 Mammography Jayro law MD Work Phone: Start: 01-22-2021 Adult depression scr eening assessment Jayro Hutchinson MD Work Phone: Start: 02-06-2020 ECHOCARDIOGRAM EXERC ISE STRESS TEST Oj Tillman Work Phone: Start: 05-11-2019 Colonoscopy Jayro law MD Work Phone: Chondrectomy of semi lunar cartilage of knee MONTEZ NORIEGA GRAIN I FARMWORKER-SMT MACHINE OPERATOR Decompression of med francisco nerve MONTEZ NORIEGA GRAIN I FARMWORKER-SMT MACHINE OPERATOR Excision of mass MONTEZ Arizmendi GRAIN I FARMWORKER-SMT MACHINE OPERATOR Hysterectomy MONTEZ BURDICK RN-SMT MACHINE OPERATOR Plantar digital nerv e (body structure) MONTEZ NORIEGA GRAIN I FARMWORKER-SMT MACHINE OPERATOR Septoplasty/submucou s resecj w/wo cartilage grf MONTEZ NORIEGA GRAIN I FARMWORKER-SMT MACHINE OPERATOR 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) MONTEZ NORIEGA GRAIN I FARMWORKER-SMT MACHINE OPERATOR Tubal ligation done MONTEZ REMY GRAIN I FARMWORKER-SMT MACHINE OPERATOR Volar plate of interphalangeal joint of finger (body structure) MONTEZ NORIEGA GRAIN I FARMWORKER-SMT MACHINE OPERATOR Plan of Treatment Date Care Activity Detail Author Start: 05-11-2029 Colonoscopy COLONOSCOPY [facility] Start: 05-11-2029 COLORECTAL CANCER SCREENING COLORECTAL CANCER SCREENING [facility] Start: 02-15-2029 DTaP/Tdap/Td vaccine (2 - Td) DTaP/Tdap/Td vaccine (2 - Td) [place] Start: 02-15-2029 Urine microalbumin profile [facility] Start: 01-21-2028 Lipid 1996 panel - S terry or Plasma Lipid Screening [facility] Start: 02-20-2027 LIPID SCREEN LIPID SCREEN [facility] Start: 01-20-2026 Diabetes Screening Diabetes Screenin g [facility] Start: 02-20-2025 DIABETES SCREEN DIABETES SCREEN [facility] Start: 09-17-2024 Lipid panel Lipid screen Camryn Rivera th- [place], [place] Start: 02-12-2024 DIABETES SCREEN DIABETES SCREEN [facility] Start: 09-22-2023 Mammography [facility] Start: 03-09-2023 Shingrix Vaccine (2 of 2) Shingrix Vaccine (2 of 2) [facility] Start: 03-05-2023 Influenza vaccination C [facility] Start: 02-20-2023 Adult depression screening assessment DEPRESSION SCREENING [facility] Start: 02-20-2023 SHINGRIX VACCINE (1 of 2) SHINGRIX VACCINE (1 of 2) [facility] Immunizations Immunization Date Immunization Notes Care Provider Alexa wick 01-12-2023 zoster vaccine recombinant Jayro Hutchinson MD Work Phone: [facility] 08-28-2022 COVID-19 booster vaccine, age 12+ yr, bivalent (PFIZER-BIONTECH) Mammography Coordinator [facility] 11-18-2021 COVID-19 vaccine, ag e 12+ yr (PFIZER-BIONTECH - THORPE TOP) Jolynn Romo GRAIN I FARMWORKER.POWERHOUSE MECHANIC HELPER Work Phone: [facility] Work Phone: Payers Date Payer Category Payer Unknown [employer] PPO [id number] 2020-Present [phone] [address] [place] [address] PPO [id number] 2020 Unknown [employer] PPO [id number] 2020-Present [phone] [address] [place] [address] PPO [id number] 2020 Unknown [id number] 2014 Unknown [employer] M [employer] [address] [id number] 2014-Present [phone] [address] [place] [address] [id number] 1958 Unknown [id number] Social History Date Type Detail Facility Start: 01-12-2012 End: 02-06-2020 Tobacco smoking status NHIS Never smoker [facility] Work Phone: Start: 01-12-2012 End: 02-06-2020 Tobacco use and exposure Never used [place] Start: 02-06-2020 Alcohol intake Ex-drinker (finding) Oilex, K Y Sex Assigned At Not on file [facility] Start: 01-22-2021 End: 03-01-2023 Alcohol intake Current non-drinker of alcohol (finding) [facility] Start: 01-22-2021 End: 08-22-2022 History SDOH Alcohol Frequency 1 [facility] Start: 01-22-2021 History SDOH Alcohol Std Drinks 98 [facility] Start: 01-22-2021 End: 08-22-2022 History SDOH Social Connections Phone 5 [facility] Start: 01-22-2021 End: 08-22-2022 History SDOH Social Connections Get Together 3 [facility] Start: 01-22-2021 End: 08-22-2022 History SDOH Physical Activity DPW 4 [facility] Start: 01-22-2021 End: 08-22-2022 History SDOH Stress 2 [facility] Start: 09-13-2019 Education 21 [facility] Start: 1960 Sex Assigned At Female [facility] Start: 09-09-2021 End: 04-13-2022 Exposure to SARS-CoV-2 (event) Not sure [facility] Sex Assigned At Sex [facility] Start: 08-21-2022 End: 08-22-2022 History SDOH Alcohol Std Drinks 0 [facility] Start: 08-22-2022 End: 03-01-2023 History of Social function [facility] Start: 08-22-2022 End: 03-01-2023 Social connection and isolation panel [facility] Do you belong to any clubs or organizations such as cheondoism groups, unions, fraternal or athletic groups, or school groups? Yes [facility] Are you now , , , , never or living with a partner? [facility] How often to you hav e a drink containing alcohol? Never [facility] How many standard dr inks containing alcohol do you have on a typical day? Patient does not drink [facility] Do you feel stress - tense, restless, nervous, or anxious, or unable to sleep at night because your mind is troubled all the time - these days [OSQ] Not at all [facility] (I/We) worried wheth er (my/our) food would run out before (I/we) got money to buy more. Never true [facility] In the past 12 month s, was there a time when you were not able to pay the mortgage or rent on time? No [facility] Start: 10-04-2019 Gender identity Identifies as female gender (finding) [facility] Start: 10-04-2019 Sexual orientation Heterosexual (finding) [facility] Functional Status Date Assessment Result Facility 08-20-2022 Functional Status 4 [facility] 08-20-2022 Functional Status Room check performed [facility] 08-20-2022 Functional Status [facility] 08-19-2022 Functional Status Driving, management sme, Home management, Housework, Laundry, Meal preparation, Personal ADL, Shopping [facility] 08-18-2022 Functional Status Sensory Deficits None A [facility] Mental Status Date Assessment Result Facility 08-20-2022 Mental Status Orientation Asse ssment Oriented x 4 [facility] 08-20-2022 Mental Status Orientation Oriented x 4 [facility] 08-20-2022 [facility] 08-19-2022 Mental Status [facility] 08-19-2022 Mental Status [facility] Clinical Notes 07-07-2021 to 03-01-2023 Jayro Hutchinson MD - 03/01/2023 1:25 PM Young Briscoe APRN.SMT MACHINE OPERATOR - 10/18/2022 8:16 AM [facility] Coordinator - 09/21/2022 9:49 AM Sheila Hutchinson MD - 08/28/2022 2:45 PM EST Note Date & Type Note Facility 03-01-2023 Note HNO ID: [id number] Author: Jayro Hutchinson MD Service: ? Author Type: Physician Type: Progress Notes Filed: 04/04/2023 9:48 PM Note Text: This note was created using tradeNOWriter. Subjective Alex Alfred is a 62 year old female. HISTORY Alex Alfred is a 62 year old lady here for yearly exam and follow up appointment. Taking Nexium daily. Reflux recurs if misses dose. Has been doing some walking and biking. PAST MEDICAL HISTORY Diagnosis Date Allergic rhinitis, cause unspecified Basal cell carcinoma nose (Dr. Sanderson) Benign neoplasm of colon Calcaneal spur left plantar fascities Migraine without aura, without mention of intractable migraine without mention of status migrainosus Osteopenia Current Outpatient Medications Medication Sig esomeprazole (NEXIUM) 20 mg capsule Take 1 capsule by mouth daily before breakfast. 1/2 hr before meal. cetirizine (ZYRTEC) 10 mg tablet Take 1 tablet by mouth once daily. as needed for nasal congestion and drainage Cholecalciferol, Vitamin D3, 125 mcg (5,000 unit) cap Take 1 capsule by mouth once daily. calcium combo no.2-vitamin D3 (CITRACAL-D3 SLOW RELEASE) 600 mg-12.5 mcg (500 unit) TbER Take 1,200 mg by mouth every evening AND 600 mg every morning. fluticasone (FLONASE) 50 mcg/actuation nasal spray Use 1 Pocahontas in each nostril once daily. acyclovir (ZOVIRAX) 5 % ointment Apply 1 application to affected area five times daily. as needed naproxen sodium (ANAPROX) 220 mg tablet Take 1 tablet by mouth once daily as needed. THERAPEUTIC MULTIVITAMIN TAB Take one(1) tablet daily. No current facility-administered medications for this visit. ALLERGIES Allergen Reactions Buprenex [Buprenorp* numbness Cats Codeine tachycardia Darvocet A500 [Prop* numbness Demerol [Meperidine* numbness Lactose Diarrhea, GI Upset Morphine numbness Reclast [Zoledronic* Other: See Comments Back spasms, low O2 level FAMILY HISTORY Problem Relation Age of Onset Thyroid Mother other (osteopenia) Mother Cancer Cancer Father bladder/skin Heart Father Triple bypass Kidney Disease Father Cancer Paternal Grandmother stomach Cancer Paternal Grandfather pancreatic Cancer Paternal Aunt pancreatic Cancer Paternal Aunt kidney Cancer Paternal Aunt liver Cancer Paternal Aunt Cancer Paternal Uncle brain Cancer Paternal Uncle liver Cancer Paternal Uncle brain Social History Tobacco Use Smoking status: Never Smokeless tobacco: Never Substance Use Topics Alcohol use: No Drug use: No Review of Systems Objective BP 158/82 Pulse 78 Temp 36.6 ?C (97.8 ?F) Resp 18 Ht 154.5 cm (5' 0.83 ) Wt 69.7 kg (153 lb 11.2 oz) SpO2 96% BMI 29.21 kg/m? Last 5 Encounter Wt Readings: Date: Wt: 03/01/2023 69.7 kg (153 lb 11.2 oz) 10/18/2022 69.5 kg (153 lb 3.2 oz) 06/17/2022 70.3 kg (155 lb) 04/13/2022 72 kg (158 lb 12.8 oz) 02/20/2022 69.4 kg (153 lb) No waist measurement recorded Estimated body mass index is 29.21 kg/m? as calculated from the following: Height as of this encounter: 154.5 cm (5' 0.83 ). Weight as of this encounter: 69.7 kg (153 lb 11.2 oz). Last 5 Encounter BP Readings: Date: BP: 03/01/2023 158/82 10/18/2022 126/76 06/17/2022 134/80 04/13/2022 140/82 02/20/2022 132/72 Physical Exam Vitals reviewed. Constitutional: Appearance: She is well-developed. HENT: Head: Normocephalic and atraumatic. Right Ear: External ear normal. Left Ear: External ear normal. Nose: Nose normal. Eyes: Conjunctiva/sclera: Conjunctivae normal. Neck: Thyroid: No thyromegaly. Cardiovascular: Rate and Rhythm: Normal rate and regular rhythm. Pulses: Normal pulses. Heart sounds: Normal heart sounds. No murmur heard. No friction rub. No gallop. Pulmonary: Effort: Pulmonary effort is normal. Breath sounds: Normal breath sounds. Abdominal: General: Bowel sounds are normal. There is no distension. Palpations: Abdomen is soft. There is no mass. Tenderness: There is no abdominal tenderness. Musculoskeletal: General: No deformity. Normal range of motion. Lymphadenopathy: Cervical: No cervical adenopathy. Skin: General: Skin is warm and dry. Coloration: Skin is not jaundiced or pale. Findings: No rash. Neurological: General: No focal deficit present. Mental Status: She is alert and oriented to person, place, and time. Cranial Nerves: No cranial nerve deficit. Sensory: No sensory deficit. Motor: No abnormal muscle tone. Coordination: Coordination normal. Deep Tendon Reflexes: Reflexes normal. Psychiatric: Mood and Affect: Mood normal. Behavior: Behavior normal. Thought Content: Thought content normal. Judgment: Judgment normal. Component Latest Ref Rng AND Units 02/11/2021 02/20/2022 01/20/2023 Protein, Total 6.3 - 8.0 g/dL 7.8 7.3 7.3 Albumin 3.9 - 4.9 g/dL 4.7 4.5 4.5 Calcium 8.5 - 10.2 mg/dL 10.0 9.8 9.9 Bilirubin, Total 0.2 - 1 (more content not included)... [facility] 03-01-2023 History of Presen t illness Narrative This note was created using tradeNOWriter. Subjective Alex Alfred is a 62 year old female. HISTORY Alex Alfred is a 62 year old lady here for yearly exam and follow up appointment. Taking Nexium daily. Reflux recurs if misses dose. Has been doing some walking and biking. PAST MEDICAL HISTORY Diagnosis Date Allergic rhinitis, cause unspecified Basal cell carcinoma nose (Dr. Sanderson) Benign neoplasm of colon Calcaneal spur left plantar fascities Migraine without aura, without mention of intractable migraine without mention of status migrainosus Osteopenia Current Outpatient Medications Medication Sig esomeprazole (NEXIUM) 20 mg capsule Take 1 capsule by mouth daily before breakfast. 1/2 hr before meal. cetirizine (ZYRTEC) 10 mg tablet Take 1 tablet by mouth once daily. as needed for nasal congestion and drainage Cholecalciferol, Vitamin D3, 125 mcg (5,000 unit) cap Take 1 capsule by mouth once daily. calcium combo no.2-vitamin D3 (CITRACAL-D3 SLOW RELEASE) 600 mg-12.5 mcg (500 unit) TbER Take 1,200 mg by mouth every evening AND 600 mg every morning. fluticasone (FLONASE) 50 mcg/actuation nasal spray Use 1 Pocahontas in each nostril once daily. acyclovir (ZOVIRAX) 5 % ointment Apply 1 application to affected area five times daily. as needed naproxen sodium (ANAPROX) 220 mg tablet Take 1 tablet by mouth once daily as needed. THERAPEUTIC MULTIVITAMIN TAB Take one(1) tablet daily. No current facility-administered medications for this visit. ALLERGIES Allergen Reactions Buprenex [Buprenorp* numbness Cats Codeine tachycardia Darvocet A500 [Prop* numbness Demerol [Meperidine* numbness Lactose Diarrhea, GI Upset Morphine numbness Reclast [Zoledronic* Other: See Comments Back spasms, low O2 level FAMILY HISTORY Problem Relation Age of Onset Thyroid Mother other (osteopenia) Mother Cancer Cancer Father bladder/skin Heart Father Triple bypass Kidney Disease Father Cancer Paternal Grandmother stomach Cancer Paternal Grandfather pancreatic Cancer Paternal Aunt pancreatic Cancer Paternal Aunt kidney Cancer Paternal Aunt liver Cancer Paternal Aunt Cancer Paternal Uncle brain Cancer Paternal Uncle liver Cancer Paternal Uncle brain Social History Tobacco Use Smoking status: Never Smokeless tobacco: Never Substance Use Topics Alcohol use: No Drug use: No Review of Systems Objective BP 158/82 Pulse 78 Temp 36.6 C (97.8 F) Resp 18 Ht 154.5 cm (5' 0.83 ) Wt 69.7 kg (153 lb 11.2 oz) SpO2 96% BMI 29.21 kg/m Last 5 Encounter Wt Readings: Date: Wt: 03/01/2023 69.7 kg (153 lb 11.2 oz) 10/18/2022 69.5 kg (153 lb 3.2 oz) 06/17/2022 70.3 kg (155 lb) 04/13/2022 72 kg (158 lb 12.8 oz) 02/20/2022 69.4 kg (153 lb) No waist measurement recorded Estimated body mass index is 29.21 kg/m as calculated from the following: Height as of this encounter: 154.5 cm (5' 0.83 ). Weight as of this encounter: 69.7 kg (153 lb 11.2 oz). Last 5 Encounter BP Readings: Date: BP: 03/01/2023 158/82 10/18/2022 126/76 06/17/2022 134/80 04/13/2022 140/82 02/20/2022 132/72 Physical Exam Vitals reviewed. Constitutional: Appearance: She is well-developed. HENT: Head: Normocephalic and atraumatic. Right Ear: External ear normal. Left Ear: External ear normal. Nose: Nose normal. Eyes: Conjunctiva/sclera: Conjunctivae normal. Neck: Thyroid: No thyromegaly. Cardiovascular: Rate and Rhythm: Normal rate and regular rhythm. Pulses: Normal pulses. Heart sounds: Normal heart sounds. No murmur heard. No friction rub. No gallop. Pulmonary: Effort: Pulmonary effort is normal. Breath sounds: Normal breath sounds. Abdominal: General: Bowel sounds are normal. There is no distension. Palpations: Abdomen is soft. There is no mass. Tenderness: There is no abdominal tenderness. Musculoskeletal: General: No deformity. Normal range of motion. Lymphadenopathy: Cervical: No cervical adenopathy. Skin: General: Skin is warm and dry. Coloration: Skin is not jaundiced or pale. Findings: No rash. Neurological: General: No focal deficit present. Mental Status: She is alert and oriented to person, place, and time. Cranial Nerves: No cranial nerve deficit. Sensory: No sensory deficit. Motor: No abnormal muscle tone. Coordination: Coordination normal. Deep Tendon Reflexes: Reflexes normal. Psychiatric: Mood and Affect: Mood normal. Behavior: Behavior normal. Thought Content: Thought content normal. Judgment: Judgment normal. Component Latest Ref Rng & Units 02/11/2021 02/20/2022 01/20/2023 Protein, Total 6.3 - 8.0 g/dL 7.8 7.3 7.3 Albumin 3.9 - 4.9 g/dL 4.7 4.5 4.5 Calcium 8.5 - 10.2 mg/dL 10.0 9.8 9.9 Bilirubin, Total 0.2 - 1.3 mg/dL 0.5 0.4 0.3 Alkaline Phosphatase 34 - 123 U/L 102 93 86 AST 13 - 35 U/L 26 21 19 Glucose 74 - 99 mg/dL 97 91 97 BUN 7 - 21 mg/dL 12 11 12 Creatinine 0.58 - 0.96 mg/dL 0.72 0.72 0.63 Sodium 136 - 144 mmol/L 140 141 143 Potassium 3.7 - 5.1 mmol/L 4.4 4.7 4.1 Chloride 97 - 105 mmol/L 101 104 106 (H) CO2 22 - 30 mmol/L 24 28 21 (L) Anion Gap 9 - 18 mmol/L 15 9 16 ALT 7 - 38 U/L 18 22 23 eGFR- >60 eGFR-All Other Races . >60 eGFR >=60 mL/min/1.73m 94 99 WBC 3.70 - 11.00 k/uL 8.42 6.18 7.02 RBC 3.90 - 5.20 m/uL 5.25 (H) 5.15 5.30 (H) Hemoglobin 11.5 - 15.5 g/dL 14.9 14.9 14.8 Hematocrit 36.0 - 46.0 % 47.6 (H) 46.2 (H) 46.2 (H) MCV 80.0 - 100.0 fL 90.7 89.7 87.2 MCH 26.0 - 34.0 pg 28.4 28.9 27.9 MCHC 30.5 - 36.0 g/dL 31.3 32.3 32.0 RDW-CV 11.5 - 15.0 % 13.0 12.9 13.5 Platelet Count 150 - 400 k/uL 321 297 300 MPV 9.0 - 12.7 fL 11.6 11.0 11.1 Absolute nRBC <0.01 k/uL <0.01 <0.01 <0.01 Cholesterol, Total <200 mg/dL 196 196 Triglyceride <150 mg/dL 125 138 HDL Cholesterol >39 mg/dL 52 54 Non HDL Cholesterol <130 mg/dL 144 (H) 142 (H) Fasting Time hrs 13 14 VLDL Cholesterol <30 mg/dL 25 28 TC:HDL Ratio <5.10 3.77 3.63 LDL Cholesterol <100 mg/dL 119 (H) 114 (H) LDL:HDL Ratio <2.54 2.29 2.11 Magnesium 1.7 - 2.3 mg/dL 2.5 (H) 2.3 2.4 (H) Vitamin D 25 Hydroxy 31.0 - 80.0 ng/mL 71.6 56.5 44.9 PTH, Intact 15 - 65 pg/mL 52 The 10-year ASCVD risk score (Stanley GARDNER, et al., 2019) is: 6.1% Values used to calculate the score: Age: 62 years Sex: Female Is Non- : No Diabetic: No Tobacco smoker: No Systolic Blood Pressure: 142 mmHg Is BP treated: No HDL Cholesterol: 54 mg/dL Total Cholesterol: 196 mg/dL CT ABDOMEN/PELVIS W/O CONTRAST ORIGINAL EXAMINATION: CT OF THE ABDOMEN AND PELVIS WITHOUT CONTRAST 08/18/2022 4:46 pm TECHNIQUE: CT of the abdomen and pelvis was performed without the administration of intravenous contrast. Multiplanar reformatted images are provided for review. Automated exposure control, iterative reconstruction, and/or weight based adjustment of the mA/kV was utilized to reduce the radiation dose to as low as reasonably achievable. COMPARISON: None. HISTORY: ORDERING SYSTEM PROVIDED HISTORY: Reason for Exam: abdominal pain FINDINGS: See dedicated CTA chest for evaluation of the lung bases. The liver is mildly diffusely hypoattenuating compatible with hepatic steatosis. The spleen, adrenal glands, and pancreas are unremarkable. The gallbladder is unremarkable. No hydronephrosis or intrarenal stones. The ureters and bladder are unremarkable. Small to moderate hiatal hernia. Nondilated loops of small bowel. Scattered colonic diverticulosis without diverticulitis. Noninflamed appendix. Prior hysterectomy. Scattered phleboliths. No free intraperitoneal fluid or gas. No lymphadenopathy. Atherosclerotic nonaneurysmal abdominal aorta. Tiny fat containing umbilical hernia. Minimal dorsal spondylosis. No acute or aggressive osseous lesion. IMPRESSION: No acute process within the abdomen/pelvis. Small to moderate hiatal hernia. Hepatic steatosis. Other chronic and incidental findings as above. I have personally reviewed the images of this examination and agree with the resident's findings and interpretation. Interpreted by: Bairon Alonzo Preliminary Report By: Martin Bright Electronically signed By Bairon Alonzo Dictated Date: 08/18/2022 4:51:31 PM Prelim Date: 08/18/2022 4:55:59 PM Sign Date: 08/18/2022 4:57:47 PM Ordering Provider: TAHIR GARZA Assessment and Plan Encounter Diagnosis ICD-10-CM 1. Routine medical exam Z00.00 2. 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 Breast cancer screening by mammogram Z12.31 SEMAJ SCREENING 4. Age-related osteoporosis without current pathological fracture M81.0 COMP METABOLIC PANEL LIPID PANEL BASIC MAGNESIUM BLD CBC VITAMIN D 25 HYDROXY PTH INTACT BLD 5. Toe pain, bilateral M79.674 M79.675 Only when wearing work shoes--[employer] Balance--might be laced up to tight at top. Make adjustments then go from there 6. Elevated BP without diagnosis of hypertension R03.0 There was a wsp in the waiting room. Has BP cuff. Has been validated. Will monitor and let me know if need to address before next year 7. Encounter for long-term current use of medication Z79.899 COMP METABOLIC PANEL LIPID PANEL BASIC MAGNESIUM BLD CBC VITAMIN D 25 HYDROXY PTH INTACT BLD 8. Vitamin D deficiency E55.9 VITAMIN D 25 HYDROXY 9. Elevated LDL cholesterol level E78.00 LIPID PANEL BASIC Patient here for yearly exam and follow up. Above issues addressed with patient. Patient involved in shared decision making for management of medical issues. History and medications reviewed. Epic updated as needed Refills taken care of and meds adjusted as indicated after reviewed history, exam and labs. Health Maintenance reviewed. Updated record and/or ordered tests as recorded. Encouraged on efforts at healthy diet and regular exercise and adequate sleep. Needs to keep working on diet and exercise with lifestyle changes for effective weight loss as well as prevention of DM, and control of BP and lipids. Jayro Hutchinson MD documented in this encounter [facility] 10-18-2022 Note HNO ID: [id number] Author: Carey Briscoe APRN.SMT MACHINE OPERATOR Service: ? Author Type: Nurse Practitioner Type: Progress Notes Filed: 10/18/2022 8:35 AM Note Text: CC: Patient presents with: Cough: Pt reported nasal congestion, throat pain x2 wks. HPI: Alex Alfred is a 62 year old female who presents to the office with complaint of head congestion, cough, nonproductive, and sore throat for 2 weeks. Symptoms are worsening Associated symptoms includes sore throat, nasal congestion, and facial pain/pressure. Denies fever, nausea, vomiting , and diarrhea. Treatments tried include nothing so far. with no relief of symptoms. Sick contacts: unknown. History of asthma, frequent episodes of bronchitis, chronic bronchitis, bronchiectasis or COPD: No Smoker: No Seasonal/environmental allergies: No The ROS is otherwise negative. The patient's pmh, medications, allergies, and past visits are reviewed. PHYSICAL EXAM: BP 126/76 Pulse 86 Temp 36.6 ?C (97.8 ?F) (Tympanic) Resp 16 Wt 69.5 kg (153 lb 3.2 oz) SpO2 97% BMI 28.95 kg/m? General appearance: alert, cooperative, pleasant, in no acute distress Head: Normocephalic Eyes: EOM's intact, conjunctiva pink and moist, no icterus, sclera white, non-injected Ears: Right ear: External ear/canal- Normal, TM - clear with good landmarks. Left ear: External ear/canal- Normal, TM - clear with good landmarks Oropharynx:moderate erythema, without exudates present Heart: Negative. RRR without obvious murmur, gallop, or rubs. No ectopy. Lungs: clear to auscultation, without rales or wheeze, good air exchange PAST MEDICAL HISTORY Diagnosis Date Allergic rhinitis, cause unspecified Basal cell carcinoma nose (Dr. Sanderson) Benign neoplasm of colon Calcaneal spur left plantar fascities Migraine without aura, without mention of intractable migraine without mention of status migrainosus Osteopenia PAST SURGICAL HISTORY Procedure Laterality Date COLONOSCOPY FLX DX W/COLLJ SPEC WHEN PFRMD 12/11/2008 Colonoscopy COLONOSCOPY FLX DX W/COLLJ SPEC WHEN PFRMD 05/11/2019 Colonoscopy KNEE SURGERY HX Right 2014 LIG/TRNSXJ FLP TUBE ABDL/VAG APPR UNI/BI 1989 OSTECTOMY CALCANEUS SPUR W/WO PLNTAR FASCIAL RLS 06/16/2011 Left foot PAST SURGICAL HISTORY OF 1992 and 1993 Had surgery to right hand ring finger x 2 PAST SURGICAL HISTORY OF 1990 The patient had part of her cervix removed due to pre cancerous cells REMOVAL OF IMPACTED TOOTH - COMPLETELY BONY 1979 Yutan tooth removal SEPTOPLASTY/SUBMUCOUS RESECJ W/WO CARTILAGE GRF 1977 TOTAL ABDOMINAL HYSTERECT W/WO RMVL TUBE OVARY 1997 ALLERGIES Buprenex [Buprenorphine Hcl], Cats, Codeine, Darvocet A500 [Propoxyphene N-Acetaminophen], Demerol [Meperidine Hcl], Lactose, Morphine, and Reclast [Zoledronic [id number]] MEDICATIONS naproxen sodium (ANAPROX) 220 mg tablet Take 220 mg by mouth once daily. esomeprazole (NEXIUM) 20 mg capsule Take 1 capsule by mouth daily before breakfast. 1/2 hr before meal. cetirizine (ZYRTEC) 10 mg tablet Take 1 tablet by mouth once daily. as needed for nasal congestion and drainage acyclovir (ZOVIRAX) 5 % ointment Apply 1 application to affected area five times daily. as needed Cholecalciferol, Vitamin D3, 125 mcg (5,000 unit) cap Take 1 capsule by mouth once daily. calcium combo no.2-vitamin D3 (CITRACAL-D3 SLOW RELEASE) 600 mg-12.5 mcg (500 unit) TbER Take 1,200 mg by mouth every evening AND 600 mg every morning. fluticasone (FLONASE) 50 mcg/actuation nasal spray Use 1 Pocahontas in each nostril once daily. THERAPEUTIC MULTIVITAMIN TAB Take one(1) tablet daily. FAMILY HISTORY Problem Relation Age of Onset Thyroid Mother other (osteopenia) Mother Cancer Cancer Father bladder/skin Heart Father Triple bypass Kidney Disease Father Cancer Paternal Grandmother stomach Cancer Paternal Grandfather pancreatic Cancer Paternal Aunt pancreatic Cancer Paternal Aunt kidney Cancer Paternal Aunt liver Cancer Paternal Aunt Cancer Paternal Uncle brain Cancer Paternal Uncle liver Cancer Paternal Uncle brain Social History Tobacco Use Smoking status: Never Smokeless tobacco: Never Substance Use Topics Alcohol use: No Drug use: No ASSESSMENT/PLAN: 1. Sore throat - ICD9: 462, ICD10: J02.9 (primary diagnosis) - STREP A MOLECULAR (POC) - neg 2. Rhinosinusitis - ICD9: 473.9, ICD10: J31.0, J32.9 - DOXYCYCLINE MONOHYDRATE 100 MG TABLET Prescription instructions reviewed with patient as applicable. Potential red flag symptoms discussed with the patient. Reviewed appropriate action plan to take if red flag symptoms occur. Patient agreeable to treatment plan. Carey Briscoe APRN.[facility] 04-16-2023 History of Presen t illness Narrative CC: Patient presents with: Cough: Pt reported nasal congestion, throat pain x2 wks. HPI: Alex Alfred is a 62 year old female who presents to the office with complaint of head congestion, cough, nonproductive, and sore throat for 2 weeks. Symptoms are worsening Associated symptoms includes sore throat, nasal congestion, and facial pain/pressure. Denies fever, nausea, vomiting , and diarrhea. Treatments tried include nothing so far. with no relief of symptoms. Sick contacts: unknown. History of asthma, frequent episodes of bronchitis, chronic bronchitis, bronchiectasis or COPD: No Smoker: No Seasonal/environmental allergies: No The ROS is otherwise negative. The patient's pmh, medications, allergies, and past visits are reviewed. PHYSICAL EXAM: BP 126/76 Pulse 86 Temp 36.6 C (97.8 F) (Tympanic) Resp 16 Wt 69.5 kg (153 lb 3.2 oz) SpO2 97% BMI 28.95 kg/m General appearance: alert, cooperative, pleasant, in no acute distress Head: Normocephalic Eyes: EOM's intact, conjunctiva pink and moist, no icterus, sclera white, non-injected Ears: Right ear: External ear/canal- Normal, TM - clear with good landmarks. Left ear: External ear/canal- Normal, TM - clear with good landmarks Oropharynx:moderate erythema, without exudates present Heart: Negative. RRR without obvious murmur, gallop, or rubs. No ectopy. Lungs: clear to auscultation, without rales or wheeze, good air exchange PAST MEDICAL HISTORY Diagnosis Date Allergic rhinitis, cause unspecified Basal cell carcinoma nose (Dr. Sanderson) Benign neoplasm of colon Calcaneal spur left plantar fascities Migraine without aura, without mention of intractable migraine without mention of status migrainosus Osteopenia PAST SURGICAL HISTORY Procedure Laterality Date COLONOSCOPY FLX DX W/COLLJ SPEC WHEN PFRMD 12/11/2008 Colonoscopy COLONOSCOPY FLX DX W/COLLJ SPEC WHEN PFRMD 05/11/2019 Colonoscopy KNEE SURGERY HX Right 2014 LIG/TRNSXJ FLP TUBE ABDL/VAG APPR UNI/BI 1989 OSTECTOMY CALCANEUS SPUR W/WO PLNTAR FASCIAL RLS 06/16/2011 Left foot PAST SURGICAL HISTORY OF 1992 and 1993 Had surgery to right hand ring finger x 2 PAST SURGICAL HISTORY OF 1990 The patient had part of her cervix removed due to pre cancerous cells REMOVAL OF IMPACTED TOOTH - COMPLETELY BONY 1979 Yutan tooth removal SEPTOPLASTY/SUBMUCOUS RESECJ W/WO CARTILAGE GRF 1977 TOTAL ABDOMINAL HYSTERECT W/WO RMVL TUBE OVARY 1997 ALLERGIES Buprenex [Buprenorphine Hcl], Cats, Codeine, Darvocet A500 [Propoxyphene N-Acetaminophen], Demerol [Meperidine Hcl], Lactose, Morphine, and Reclast [Zoledronic Rhjx-Ktenyziv-Kayxp] MEDICATIONS naproxen sodium (ANAPROX) 220 mg tablet Take 220 mg by mouth once daily. esomeprazole (NEXIUM) 20 mg capsule Take 1 capsule by mouth daily before breakfast. 1/2 hr before meal. cetirizine (ZYRTEC) 10 mg tablet Take 1 tablet by mouth once daily. as needed for nasal congestion and drainage acyclovir (ZOVIRAX) 5 % ointment Apply 1 application to affected area five times daily. as needed Cholecalciferol, Vitamin D3, 125 mcg (5,000 unit) cap Take 1 capsule by mouth once daily. calcium combo no.2-vitamin D3 (CITRACAL-D3 SLOW RELEASE) 600 mg-12.5 mcg (500 unit) TbER Take 1,200 mg by mouth every evening AND 600 mg every morning. fluticasone (FLONASE) 50 mcg/actuation nasal spray Use 1 Pocahontas in each nostril once daily. THERAPEUTIC MULTIVITAMIN TAB Take one(1) tablet daily. FAMILY HISTORY Problem Relation Age of Onset Thyroid Mother other (osteopenia) Mother Cancer Cancer Father bladder/skin Heart Father Triple bypass Kidney Disease Father Cancer Paternal Grandmother stomach Cancer Paternal Grandfather pancreatic Cancer Paternal Aunt pancreatic Cancer Paternal Aunt kidney Cancer Paternal Aunt liver Cancer Paternal Aunt Cancer Paternal Uncle brain Cancer Paternal Uncle liver Cancer Paternal Uncle brain Social History Tobacco Use Smoking status: Never Smokeless tobacco: Never Substance Use Topics Alcohol use: No Drug use: No ASSESSMENT/PLAN: 1. Sore throat - ICD9: 462, ICD10: J02.9 (primary diagnosis) - STREP A MOLECULAR (POC) - neg 2. Rhinosinusitis - ICD9: 473.9, ICD10: J31.0, J32.9 - DOXYCYCLINE MONOHYDRATE 100 MG TABLET Prescription instructions reviewed with patient as applicable. Potential red flag symptoms discussed with the patient. Reviewed appropriate action plan to take if red flag symptoms occur. Patient agreeable to treatment plan. Carey Briscoe APRN.JUANITA documented in this encounter [facility] 09-21-2022 Miscellaneous Notes September 23, 2022 PID: [id number] Alex Alfred [address] [place] [id number] Dear Ms. Alfred, We are pleased to inform you that the results of your recent breast imaging exam on 09/21/2022 are normal. Early detection of cancer is very important. We also understand recommendations regarding breast cancer screening are controversial. Please discuss with your primary care provider which strategy is best for you and whether a mammogram is right for you. Your imaging studies and report will be kept on file at [facility] as part of your permanent medical record and are available for your continuing care. Thank you for allowing us to help in meeting your health care needs. Sincerely, Dr. Davis Interpreting Radiologist [facility] (Normal over 40) documented in this encounter [facility] 08-28-2022 Note HNO ID: [id number] Author: Jayro Hutchinson MD Service: ? Author Type: Physician Type: Progress Notes Filed: 09/27/2022 10:16 PM Note Text: This note was created using tradeNOWriter. Subjective Alex Alfred is a 62 year old female. Patient presents with: Hospital F/U: Adverse reaction to reclast SUBJECTIVE: Alex Alfred is a 62 year old year old lady here today for hospital follow up appointment for review of medical conditions. Back pain between shoulder blades and down. Had Reclast Thursday 08/17. Did expect the flu like symptoms. Was achy when got up in middle of the night. By 6:30 was severe pain. Called Dr. Nath's office about the severe pain. Every movement caused severe pain. Every breath hurt. Worse than labor pain. Note HH on CT done. Reflux controlled with PPI. Gets everything OTC. PAST MEDICAL HISTORY Diagnosis Date Allergic rhinitis, cause unspecified Basal cell carcinoma nose (Dr. Sanderson) Benign neoplasm of colon Calcaneal spur left plantar fascities Migraine without aura, without mention of intractable migraine without mention of status migrainosus Osteopenia Current Outpatient Medications Medication Sig naproxen sodium (ANAPROX) 220 mg tablet Take 220 mg by mouth once daily. esomeprazole (NEXIUM) 20 mg capsule Take 1 capsule by mouth daily before breakfast. 1/2 hr before meal. cetirizine (ZYRTEC) 10 mg tablet Take 1 tablet by mouth once daily. as needed for nasal congestion and drainage acyclovir (ZOVIRAX) 5 % ointment Apply 1 application to affected area five times daily. as needed Cholecalciferol, Vitamin D3, 125 mcg (5,000 unit) cap Take 1 capsule by mouth once daily. calcium combo no.2-vitamin D3 (CITRACAL-D3 SLOW RELEASE) 600 mg-12.5 mcg (500 unit) TbER Take 1,200 mg by mouth every evening AND 600 mg every morning. fluticasone (FLONASE) 50 mcg/actuation nasal spray Use 1 Pocahontas in each nostril once daily. THERAPEUTIC MULTIVITAMIN TAB Take one(1) tablet daily. No current facility-administered medications for this visit. Review of Systems Objective BP (P) 122/80 (BP Site: Left Arm, BP Position: Sitting, BP Cuff Size: Regular Adult) Pulse (P) 84 Wt (P) 71.2 kg (157 lb) BMI (P) 29.66 kg/m? Physical Exam Constitutional: Appearance: Normal appearance. HENT: Head: Normocephalic. Eyes: Conjunctiva/sclera: Conjunctivae normal. Cardiovascular: Rate and Rhythm: Normal rate and regular rhythm. Heart sounds: Normal heart sounds. Pulmonary: Effort: Pulmonary effort is normal. Breath sounds: Normal breath sounds. Musculoskeletal: Cervical back: Normal. Thoracic back: Normal. Lumbar back: Normal. Skin: General: Skin is warm and dry. Neurological: General: No focal deficit present. Mental Status: She is alert and oriented to person, place, and time. Psychiatric: Mood and Affect: Mood normal. Behavior: Behavior normal. Thought Content: Thought content normal. Judgment: Judgment normal. Reviewed [facility] records. Assessment and Plan Encounter Diagnosis ICD-10-CM 1. Acute midline thoracic back pain M54.6 Susanna movement triggered severe back pain that improved over about 8 to 9 days so finally no muscle spasms yesterday 2. Hepatic steatosis K76.0 3. Age-related osteoporosis without current pathological fracture M81.0 COMP METABOLIC PANEL CBC VITAMIN D 25 HYDROXY MAGNESIUM BLD LIPID PANEL BASIC PTH INTACT BLD 4. Vitamin D deficiency E55.9 VITAMIN D 25 HYDROXY 5. Encounter for long-term current use of medication Z79.899 COMP METABOLIC PANEL CBC VITAMIN D 25 HYDROXY MAGNESIUM BLD LIPID PANEL BASIC PTH INTACT BLD 6. Encounter for immunization Z23 [employer] COVID-19 BIVALENT BOOSTER VACCINE, AGE 12+ YR Above issues addressed with patient. Patient involved in shared decision making for management of medical issues. History and medications reviewed. Epic updated as needed Refills and/or prescriptions taken care of and meds adjusted as indicated after reviewed history, exam and labs. Health Maintenance reviewed. Updated record and/or ordered tests as recorded. Encouraged on efforts at healthy diet and regular exercise and adequate sleep. Jayro Hutchinson MD [facility] 08-28-2022 History of Presen t illness Narrative This note was created using tradeNOWriter. Subjective Alex Alfred is a 62 year old female. Patient presents with: Hospital F/U: Adverse reaction to reclast SUBJECTIVE: Alex Alfred is a 62 year old year old lady here today for hospital follow up appointment for review of medical conditions. Back pain between shoulder blades and down. Had Reclast Thursday 08/17. Did expect the flu like symptoms. Was achy when got up in middle of the night. By 6:30 was severe pain. Called Dr. Nath's office about the severe pain. Every movement caused severe pain. Every breath hurt. Worse than labor pain. Note HH on CT done. Reflux controlled with PPI. Gets everything OTC. PAST MEDICAL HISTORY Diagnosis Date Allergic rhinitis, cause unspecified Basal cell carcinoma nose (Dr. Sanderson) Benign neoplasm of colon Calcaneal spur left plantar fascities Migraine without aura, without mention of intractable migraine without mention of status migrainosus Osteopenia Current Outpatient Medications Medication Sig naproxen sodium (ANAPROX) 220 mg tablet Take 220 mg by mouth once daily. esomeprazole (NEXIUM) 20 mg capsule Take 1 capsule by mouth daily before breakfast. 1/2 hr before meal. cetirizine (ZYRTEC) 10 mg tablet Take 1 tablet by mouth once daily. as needed for nasal congestion and drainage acyclovir (ZOVIRAX) 5 % ointment Apply 1 application to affected area five times daily. as needed Cholecalciferol, Vitamin D3, 125 mcg (5,000 unit) cap Take 1 capsule by mouth once daily. calcium combo no.2-vitamin D3 (CITRACAL-D3 SLOW RELEASE) 600 mg-12.5 mcg (500 unit) TbER Take 1,200 mg by mouth every evening AND 600 mg every morning. fluticasone (FLONASE) 50 mcg/actuation nasal spray Use 1 Pocahontas in each nostril once daily. THERAPEUTIC MULTIVITAMIN TAB Take one(1) tablet daily. No current facility-administered medications for this visit. Review of Systems Objective BP (P) 122/80 (BP Site: Left Arm, BP Position: Sitting, BP Cuff Size: Regular Adult) Pulse (P) 84 Wt (P) 71.2 kg (157 lb) BMI (P) 29.66 kg/m Physical Exam Constitutional: Appearance: Normal appearance. HENT: Head: Normocephalic. Eyes: Conjunctiva/sclera: Conjunctivae normal. Cardiovascular: Rate and Rhythm: Normal rate and regular rhythm. Heart sounds: Normal heart sounds. Pulmonary: Effort: Pulmonary effort is normal. Breath sounds: Normal breath sounds. Musculoskeletal: Cervical back: Normal. Thoracic back: Normal. Lumbar back: Normal. Skin: General: Skin is warm and dry. Neurological: General: No focal deficit present. Mental Status: She is alert and oriented to person, place, and time. Psychiatric: Mood and Affect: Mood normal. Behavior: Behavior normal. Thought Content: Thought content normal. Judgment: Judgment normal. Reviewed [facility] records. Assessment and Plan Encounter Diagnosis ICD-10-CM 1. Acute midline thoracic back pain M54.6 Susanna movement triggered severe back pain that improved over about 8 to 9 days so finally no muscle spasms yesterday 2. Hepatic steatosis K76.0 3. Age-related osteoporosis without current pathological fracture M81.0 COMP METABOLIC PANEL CBC VITAMIN D 25 HYDROXY MAGNESIUM BLD LIPID PANEL BASIC PTH INTACT BLD 4. Vitamin D deficiency E55.9 VITAMIN D 25 HYDROXY 5. Encounter for long-term current use of medication Z79.899 COMP METABOLIC PANEL CBC VITAMIN D 25 HYDROXY MAGNESIUM BLD LIPID PANEL BASIC PTH INTACT BLD 6. Encounter for immunization Z23 [employer] COVID-19 BIVALENT BOOSTER VACCINE, AGE 12+ YR Above issues addressed with patient. Patient involved in shared decision making for management of medical issues. History and medications reviewed. Epic updated as needed Refills and/or prescriptions taken care of and meds adjusted as indicated after reviewed history, exam and labs. Health Maintenance reviewed. Updated record and/or ordered tests as recorded. Encouraged on efforts at healthy diet and regular exercise and adequate sleep. Jayro Hutchinson MD documented in this encounter [facility] 08-21-2022 Miscellaneous Notes noted. Wilbur- PT- [facility]- phoned to report he did start of care today and patient has no additional PT needs. Wilbur reviewed patient's meds and noted a potential interaction b/t naproxen and nexium. Nexium could decrease effectiveness of naproxen. documented in this encounter [facility] 08-20-2022 Miscellaneous Notes Raghavendra with [facility] notified of provider message and verbalized understanding. [facility]. Obtain records from hospitalization and schedule an appointment for follow-up if needed Raghavendra with [facility] calls to ask if provider would be willing to follow home care orders for PT. Patient discharging home today from [facility] following hospitalization for intractable back pain after re clast injection. Please call verbal order to [phone] if provider agrees. Please review and advise, Misti Chao RN documented in this encounter [facility] 08-20-2022 Hospital Discharg e instructions Patient Education 08/20/2022 10:50:02 Chronic Back Pain, [id number]-[id number] Chronic Back Pain When back pain lasts longer than 3 months, it is called chronic back pain. Pain may get worse at certain times (flare-ups). There are things you can do at home to manage your pain. Follow these instructions at home: Activity Avoid bending and other activities that make pain worse. When standing: ?Keep your upper back and neck straight. ?Keep your shoulders pulled back. ?Avoid slouching. When sitting: ?Keep your back straight. ?Relax your shoulders. Do not round your shoulders or pull them backward. Do not sit or screw machine hand one place for long periods of time. Take short rest breaks during the day. Lying down or standing is usually better than sitting. Resting can help relieve pain. When sitting or lying down for a long time, do some mild activity or stretching. This will help to prevent stiffness and pain. Get regular exercise. Ask your doctor what activities are safe for you. Do not lift anything that is heavier than 10 lb (4.5 kg). To prevent injury when you lift things: ?Bend your knees. ?Keep the weight close to your body. ?Avoid twisting. Managing pain If told, put ice on the painful area. Your doctor may tell you to use ice for 24 48 hours after a flare-up starts. ?Put ice in a plastic bag. ?Place a towel between your skin and the bag. ?Leave the ice on for 20 minutes, 2 3 times a day. If told, put heat on the painful area as often as told by your doctor. Use the heat source that your doctor recommends, such as a moist heat pack or a heating pad. ?Place a towel between your skin and the heat source. ?Leave the heat on for 20 30 minutes. ?Remove the heat if your skin turns bright red. This is especially important if you are unable to feel pain, heat, or cold. You may have a greater risk of getting burned. Soak in a warm bath. This can help relieve pain. Take [id number] and prescription medicines only as told by your doctor. General instructions Sleep on a firm mattress. Try lying on your side with your knees slightly bent. If you lie on your back, put a pillow under your knees. Keep all follow-up visits as told by your doctor. This is important. Contact a doctor if: You have pain that does not get better with rest or medicine. Get help right away if: One or both of your arms or legs feel weak. One or both of your arms or legs lose feeling (numbness). You have trouble controlling when you poop (bowel movement) or pee (urinate). You feel sick to your stomach (nauseous). You throw up (vomit). You have belly (abdominal) pain. You have shortness of breath. You pass out (faint). Summary When back pain lasts longer than 3 months, it is called chronic back pain. Pain may get worse at certain times (flare-ups). Use ice and heat as told by your doctor. Your doctor may tell you to use ice after flare-ups. This information is not intended to replace advice given to you by your health care provider. Make sure you discuss any questions you have with your health care provider. Document Released: 12/07/2008 Document Revised: 10/12/2019 Document Reviewed: 02/03/2018 [employer] Patient Education 2020 [employer]. Follow Up Care 08/18/2022 15:06:17 With:JAYRO HUTCHINSON MD Address: [address], [place] [address]- When:3-5 days Comments:Please call to schedule your post-hospital follow-up appointment. [facility] 08-20-2022 Note Discharge Instructions Thank you for allowing [facility] to assist you with your healthcare needs. The following is important discharge information regarding your hospital visit. Your Care Team JAYRO HUTCHINSON MD Your Diagnosis Back pain GERD (gastroesophageal reflux disease) Hyperglycemia Hypocalcemia What to do next Follow Up Appointments Follow Up with JAYRO HUTCHINSON MD When Within 3-5 days Why: Please call to schedule your post-hospital follow-up appointment. Where: [address] [place], [place] [id number]- The Following Activity and Diet Have Been Ordered for You Discharge Activity - Ordered -- Resume your pre-hospitalization activity, 08/20/22 10:27:00 EST Discharge Diet - Ordered -- No changes were made to your diet during your hospital stay. Please resume your pre hospitalization diet on discharge., 08/20/22 10:27:00 EST The Following Equipment Has Been Ordered for You Discharge Home Equipment Discharge Home Equipment - Ordered -- Walker; with wheels, 6 month(s), Front wheeled walker, 08/20/22 10:03:00 EST The Following Treatments Have Been Ordered for You Discharge Labs No qualifying data available. Discharge Radiology No qualifying data available. Other Therapies No qualifying data available. Post Acute Orders No qualifying data available. Someone Will Contact You Regarding These Home Health Referrals Consult Home Health - PT (Home Health PT Consult) - Ordered -- 08/20/22 10:11:00 EST, Home Therapy Order: PT Eval & Treat, Reason: General Debility, Home Therapy Instruction: Full weight bearing Allergies Buprenex Darvon Demerol Vicodin codeine Medications Please ask your primary doctor or pharmacist before taking any other medication not listed, including over the counter drugs, herbal medications, vitamins and or supplements as they may interact with your home medications. What How Much When Instructions Last Dose New naproxen (naproxen 250 mg oral tablet) 1 tab(s) by mouth Every 8 hours as needed for as needed for pain Duration: 14 Days Unchanged calcium carbonate (calcium (as carbonate) 600 mg oral tablet) 1 tab(s) by mouth Twice daily with meals Unchanged cholecalciferol (Vitamin D3 125 mcg (5000 intl units) oral capsule) 1 cap by mouth Once a day with food Unchanged herbal/ nutritional product (Probiotic) Unchanged omeprazole (omeprazole 10 mg oral delayed release capsule) Unchanged zinc acetate (zinc (as acetate) 25 mg oral capsule) 1 cap by mouth Three (3) times a day Unchanged zoledronic acid (Reclast 5 mg/ 100 mL intravenous solution) Please take this list to your next doctor s visit. Bring all medications you take, including over the counter medications, herbals and other supplements with you to your doctor s visit. Patients and families are reminded to discard old lists and to update any records with all medication providers or retail pharmacies. Medication Leaflets naproxen (na PROX en) Aleve, Anaprox-DS, Midol Extended Relief, Naprelan 500, Naprosyn What is the most important information I should know about naproxen? Naproxen can increase your risk of fatal heart attack or stroke. Do not use this medicine just before or after heart bypass surgery (coronary artery bypass graft, or CABG). Naproxen may also cause stomach or intestinal bleeding, which can be fatal. What is naproxen? Naproxen is a nonsteroidal anti-inflammatory drug (NSAID). Naproxen is used to treat pain or inflammation caused by conditions such as arthritis, ankylosing spondylitis, tendinitis, bursitis, gout, or menstrual cramps. The delayed-release or extended-release tablets are slower-acting forms of naproxen that are used only for treating chronic conditions such as arthritis or ankylosing spondylitis. These forms of naproxen will not work fast enough to treat acute pain. Naproxen may also be used for purposes not listed in this medication guide. What should I discuss with my healthcare provider before taking naproxen? Naproxen can increase your risk of fatal heart attack or stroke, even if you don't have any risk factors. Do not use this medicine just before or after heart bypass surgery (coronary artery bypass graft, or CABG). Naproxen may also cause stomach or intestinal bleeding, which can be fatal. These conditions can occur without warning while you are using naproxen, especially in older adults. You should not use naproxen if you are allergic to it, or if you have ever had an asthma attack or severe allergic reaction after taking aspirin or an NSAID. Ask a doctor before giving naproxen to a child younger than 12 years old. Ask a doctor or pharmacist if this medicine is safe to use if you have: heart disease, high blood pressure, high cholesterol, diabetes, or if you smoke; a heart attack, stroke, or blood clot; stomach ulcers or bleeding; asthma; liver or kidney disease; fluid retention; or if you take aspirin to prevent heart attack or stroke. If you are , you should not take naproxen unless your doctor tells you to. Taking an NSAID during the last 20 weeks of can cause serious heart or kidney problems in the unborn baby and possible complications with your . It may not be safe to breastfeed while using this medicine. Ask your doctor about any risk. How should I take naproxen? Use exactly as directed on the label, or as prescribed by your doctor. Use the lowest dose that is effective in treating your condition. Shake the oral suspension (liquid) before you measure a dose. Measure a dose with the supplied measuring device (not a kitchen spoon). Take this medicine with food or milk if it upsets your stomach. Always follow directions on the medicine label about giving this medicine to a child. Naproxen doses are based on weight in children. Your child's dose needs may change if the child gains or loses weight. If you use naproxen long-term, you may need frequent medical tests. This medicine can affect the results of certain medical tests. Tell any doctor who treats you that you are using naproxen. Store at room temperature away from moisture, heat, and light. Keep the bottle tightly closed when not in use. What happens if I miss a dose? Since naproxen is used when needed, you may not be on a dosing schedule. Skip any missed dose if it's almost time for your next dose. Do not use two doses at one time. What happens if I overdose? Seek emergency medical attention or call the Poison Help line at . What should I avoid while taking naproxen? Avoid drinking alcohol. It may increase your risk of stomach bleeding. Avoid taking aspirin or other NSAIDs unless your doctor tells you to. Ask a doctor or pharmacist before using other medicines for pain, fever, swelling, or cold/flu symptoms. They may contain ingredients similar to naproxen (such as aspirin, ibuprofen, or ketoprofen). Ask your doctor before using an antacid, and use only the type your doctor recommends. Some antacids can make it harder for your body to absorb naproxen. What are the possible side effects of naproxen? Get emergency medical help if you have signs of an allergic reaction (runny or stuffy nose, wheezing or trouble breathing, hives, swelling in your face or throat) or a severe skin reaction (fever, sore throat, burning eyes, skin pain, red or purple skin rash with blistering and peeling). Stop using naproxen and seek medical treatment if you have a serious drug reaction that can affect many parts of your body. Symptoms may include skin rash, fever, swollen glands, muscle aches, severe weakness, unusual bruising, or yellowing of your skin or eyes. Get emergency medical help if you have signs of a heart attack or stroke: chest pain spreading to your jaw or shoulder, sudden numbness or weakness on one side of the body, slurred speech, leg swelling, feeling short of breath. Stop using naproxen and call your doctor at once if you have: shortness of breath (even with mild exertion); swelling or rapid weight gain; the first sign of any skin rash or blister, no matter how mild; signs of stomach bleeding--bloody or tarry stools, coughing up blood or vomit that looks like coffee grounds; liver problems--nausea, upper stomach pain, loss of appetite, dark urine, eryn-colored stools, jaundice (yellowing of the skin or eyes); kidney problems--little or no urination, painful urination, swelling in your feet or ankles; or low red blood cells (anemia)--pale skin, unusual tiredness, feeling light-headed or short of breath, cold hands and feet. Common side effects may include: headache; indigestion, heartburn, stomach pain; or flu symptoms; This is not a complete list of side effects and others may occur. Call your doctor for medical advice about side effects. You may report side effects to FDA at 2-489-NTY-9836. What other drugs will affect naproxen? Ask your doctor before using naproxen if you take an antidepressant. Taking certain antidepressants with an NSAID may cause you to bruise or bleed easily. Ask a doctor or pharmacist before using naproxen with any other medications, especially: other NSAIDs or salicylates (diflunisal, salsalate); antacids and sucralfate; cholestyramine; cyclosporine; digoxin; lithium; methotrexate; pemetrexed; probenecid; warfarin (Coumadin, Jantoven) or similar blood thinners; a diuretic or 'water pill'; or heart or blood pressure medication. This list is not complete. Other drugs may affect naproxen, including prescription and ojvu-pcx-txglynl medicines, vitamins, and herbal products. Not all possible drug interactions are listed here. Where can I get more information? Your pharmacist can provide more information about naproxen. Remember, keep this and all other medicines out of the reach of children, never share your medicines with others, and use this medication only for the indication prescribed. Every effort has been made to ensure that the information provided by [employer]. ('[employer]') is accurate, up-to-date, and complete, but no guarantee is made to that effect. Drug information contained herein may be time sensitive. [employer] information has been compiled for use by healthcare practitioners and consumers in the [place] and therefore [employer] does not warrant that uses outside of the [place] are appropriate, unless specifically indicated otherwise. [employer] drug information does not endorse drugs, diagnose patients or recommend therapy. [employer] drug information is an informational resource designed to assist licensed healthcare practitioners in caring for their patients and/or to serve consumers viewing this service as a supplement to, and not a substitute for, the expertise, skill, knowledge and judgment of healthcare practitioners. The absence of a warning for a given drug or drug combination in no way should be construed to indicate that the drug or drug combination is safe, effective or appropriate for any given patient. [employer] does not assume any responsibility for any aspect of healthcare administered with the aid of information [employer] provides. The information contained herein is not intended to cover all possible uses, directions, precautions, warnings, drug interactions, allergic reactions, or adverse effects. If you have questions about the drugs you are taking, check with your doctor, nurse or pharmacist. Copyright 7072-2550 [employer]. Version: .. Revision Date: 11/11/2021. Education Materials Chronic Back Pain When back pain lasts longer than 3 months, it is called chronic back pain. Pain may get worse at certain times (flare-ups). There are things you can do at home to manage your pain. Follow these instructions at home: Activity Avoid bending and other activities that make pain worse. When standing: ? Keep your upper back and neck straight. ? Keep your shoulders pulled back. ? Avoid slouching. When sitting: ? Keep your back straight. ? Relax your shoulders. Do not round your shoulders or pull them backward. Do not sit or screw machine hand one place for long periods of time. Take short rest breaks during the day. Lying down or standing is usually better than sitting. Resting can help relieve pain. When sitting or lying down for a long time, do some mild activity or stretching. This will help to prevent stiffness and pain. Get regular exercise. Ask your doctor what activities are safe for you. Do not lift anything that is heavier than 10 lb (4.5 kg). To prevent injury when you lift things: ? Bend your knees. ? Keep the weight close to your body. ? Avoid twisting. Managing pain If told, put ice on the painful area. Your doctor may tell you to use ice for 24 48 hours after a flare-up starts. ? Put ice in a plastic bag. ? Place a towel between your skin and the bag. ? Leave the ice on for 20 minutes, 2 3 times a day. If told, put heat on the painful area as often as told by your doctor. Use the heat source that your doctor recommends, such as a moist heat pack or a heating pad. ? Place a towel between your skin and the heat source. ? Leave the heat on for 20 30 minutes. ? Remove the heat if your skin turns bright red. This is especially important if you are unable to feel pain, heat, or cold. You may have a greater risk of getting burned. Soak in a warm bath. This can help relieve pain. Take zvud-scz-uqbfxkd and prescription medicines only as told by your doctor. General instructions Sleep on a firm mattress. Try lying on your side with your knees slightly bent. If you lie on your back, put a pillow under your knees. Keep all follow-up visits as told by your doctor. This is important. Contact a doctor if: You have pain that does not get better with rest or medicine. Get help right away if: One or both of your arms or legs feel weak. One or both of your arms or legs lose feeling (numbness). You have trouble controlling when you poop (bowel movement) or pee (urinate). You feel sick to your stomach (nauseous). You throw up (vomit). You have belly (abdominal) pain. You have shortness of breath. You pass out (faint). Summary When back pain lasts longer than 3 months, it is called chronic back pain. Pain may get worse at certain times (flare-ups). Use ice and heat as told by your doctor. Your doctor may tell you to use ice after flare-ups. This information is not intended to replace advice given to you by your health care provider. Make sure you discuss any questions you have with your health care provider. Document Released: 12/07/2008 Document Revised: 10/12/2019 Document Reviewed: 02/03/2018 Elsevier Patient Education 2020 [employer] Additional Information VACCINATE! IT SAVES LIVES! Members of the community who have not yet received the COVID-19 vaccine and would like to receive it can visit one of [facility] vaccine clinics. There are many vaccine clinic locations within the [facility]. For locations and available times, please visit https://gettheshot.coronavirus.o ilo.gov/. It is important to note that some COVID mobile vaccine clinics are held outdoors and may be canceled in rainy or stormy conditions. To learn more about pediatric vaccinations (ages 5-11), we invite you to visit the [facility] webpage. https://www.[facility].org/p ages/2196-Xomec-Wwysfpvovpo-Freq txwbzz-Eznlj-Txmetqeex.html To learn more about the COVID-19 vaccine, we invite you to visit the CDC website for a list of frequently asked questions. https://www.cdc.gov/coronavirus/ 2019-ncov/vaccines/faq.html [facility] Patient Portal Access Instructions: Stay connected with your healthcare team and access your personal medical information anytime with the [facility] Patient Portal.If you would like a full copy of your medical records, please contact the [facility] Medical Records Department, Wednesday through Wednesday between 8a.m. and 4:30p.m. Please follow the directions below to access the portal: 1.Access the email account you provided upon registration to the hospital.2.Look for an invitation email from [facility].3.Open the email and access the invitation link: Accept Invitation to [facility]4.Fill in the required delgdao to create your account. Sign into [email or web address] with your username and password that you created in the above steps to stay up to date. You can then view a summary of results, a summary of your visits, and the ability to download your summaries to your computer or send the information securely to a physician. Remember that your healthcare information is confidential, so carefully consider who you will allow to register on the [facility] Patient Portal for access to your information. You can also access the [facility] Patient Portal on the [employer] arpan. Simply click on Health Records under Health Data and then click on the Stripe logo. HOW TO SAFELY DISPOSE OF PRESCRIPTION MEDICATIONS Please use one of the following methods to safely dispose of your unused medications. 1.Use a drug disposal kit: the drug disposal pouch allows you to safely discard your old and unused drugs. Ask your nurse to give you one when you are discharged.2.Visit a local take-back location: Many local pharmacies and police departments have programs that collect old and unwanted prescription drugs. Call your local pharmacy or go to http://[employer].Scan [employer] Target/7F1Wn8r to find one close to you.3.Make use of household items: Use cat litter or old coffee grounds to dispose medications if other options are not available. Mix your drugs with these household products, seal them in an airtight container and throw it into the garbage. Call [facility]: [phone] to be sure your drugs can be disposed of in this way. Some medicines may require a different approach.4.Never flush your medications down the toilet. IF YOU HAVE BEEN PRESCRIBED AN OPIOID FOR PAIN If you have been prescribed an opioid (such as hydrocodone, oxycodone or morphine), it is critical to understand the possible side effects and risks of opioid pain medications. Even when taken as directed, opioids can have several side effects including: Tolerance, meaning you might need to take more of a medication for the same pain relief. Nausea, vomiting and/or constipation. Sleepiness, dizziness, dry mouth, confusion, depression or itching. Physical dependence, meaning you have withdrawal symptoms when a medication is stopped, can develop within a few days. KNOW YOUR RESPONSIBILITIES It is important to know exactly how much and how often to take the opioid pain medications you are prescribed. Never take opioids in higher amounts or more often than prescribed. Do not combine opioids with alcohol or other drugs that cause drowsiness, such as benzodiazepines, also known as benzos, including diazepam and alprazolam, muscle relaxants or sleep aids. Never sell or share prescription opioids. This is illegal. Store opioids in a secure place and out of reach of others (including children, family, friends and visitors). The last page of this document has been signed and retained as a CHART COPY. Signatures Patient Education Materials Chronic Back Pain, Arpf-zq-Pukj Medication Leaflets naproxen My discharge plan and instructions have been reviewed and explained to me and I,ALEX ALFRED understand my current condition and have read and understand these discharge instructions. I have received a written copy of the plan/instructions. If I have questions, I am aware that I should contact my doctor. 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 Back pain Acute, new onset, likely side effect of Reclast *According to UpToDate, arthralgia and bone pain are adverse reactions especially after a first dose of Reclast. Usually resolves in 2-3 days but could be up to 7-14 days after infusion. *Patient reports that pain is worse with movement, at times feels like muscle spasms in her back. *Continue Toradol 30 mg IV PRN. *Continue Percocet 1 tab PO PRN for pain. *May have Flexeril as needed for muscle spasms. *Consult placed to PT and OT to evaluate and treat. *Repeat CBC and BMP in the am. 2. GERD (gastroesophageal reflux disease) Chronic *Continue Protonix 40 mg PO daily. 3. Hyperglycemia Acute, new onset, may be reaction to Reclast also *Check HgbA1c in am. 4. Hypocalcemia Acute on chronic *This may also be a side effect of Reclast *Continue calcium carbonate supplements. DVT prophylaxis with SCDs. Code status: Full Code. Labs, diagnostic test and progress notes reviewed as noted in HPI. Plan of care discussed with patient. All questions answered. Patient verbalizes understanding and is agreeable with plan of care. This case was discussed with collaborating physician, Dr. Sandeep Quan. [facility] 02-15-2023 Note Date of Service 08/19/2022 Chief Complaint comes in to ER with extreme upper back pain radiating down her spine o the riht hip and rightknee History of Present Illness Patient is a 62-year-old female, who follows with Dr. Nick Cook with a past medical history significant for GERD and osteoporosis, presents to [facility] emergency department with the chief complaint of intractable back pain. Patient states that she had a reclast injection Wednesday at [facility]. After the injection, she felt fine, however, overnight she developed diffuse body aches and worsening back pain. She states the pain is in the middle of her thoracic spine, between the shoulder blades, and radiates down to her right hip and right knee. She rated it 10/10 on presentation to the ED. She admits to some shortness of breath but attributes it to the severepain. She denies any fever, chills, cough, chest pain, abdominal pain, nausea or dysuria. She took Tylenol at home with no improvement in her pain. In the emergency department, CTA of the chest revealed no evidence of pulmonary embolism or evidence of dissection. Scattered areas of subsegmental atelectasis. CT of the abdomen/pelvis revealed no acute process within the abdomen/pelvis. Small to moderate hiatal hernia. Hepatic steatosis. EKG revealed sinus rhythm. White blood cell count 11.4. CBC otherwise unremarkable. BMP significant for glucose 147. Troponin was negative. Urinalysis unremarkable. Patient was administered 4 mg Zofran IV, 4 mg Morphine IV, 500 cc NS, 1 mg dilaudid IV, 5 mg diazepam IV and 7 mg Ketamine IV in the ED with some improvement in her pain. She will be transferred to medical surgical unit for observation. We will continue PO pain medication. Consult placed to PT and OT to evaluate and treat. Repeat CBC and BMP in the am. Review of Systems Review of Systems: Reviewed in detail, including general health, HEENT, cardiovascular, respiratory, gastrointestinal, genitourinary, endocrine, musculoskeletal, neurologic, vascular, skin, and psychiatric. All are negative except for those listed in the History of Present Illness. Physical Exam Vitals and Measurements T: 37.7 C (Oral) TMIN: 36.9 C (Oral) TMAX: 37.7 C (Oral) HR: 90(Monitored) RR: 18 BP: 104/68 SpO2: 94% HT: 155 cm WT: 70.8 kg BMI: 28.39 Weight Dosing Weight: 70.8 kg (08/19/22) Dosing Weight: 68.2 kg (08/18/22) General: No acute distress. Patient is alert and appropriate. Skin: No rash. Skin is warm, dry and intact. HEENT: Head is normocephalic, atraumatic. Pupils are equal, round and reactive. Neck: Supple. No lymphadenopathy, thyromegaly. Lungs: Bilaterally clear but diminished without crepitation or wheeze. Unlabored. Heart: Heart is regular rhythm, S1, S2. No murmurs, gallops or rubs. Abdomen: Abdomen is soft, nontender. Bowels sounds present in all quadrants. Extremities: No clubbing, cyanosis, or edema. Peripheral pulses palpable. No calf tenderness. Neurological: Patient is awake and alert to person, place and time. Following simple commands, moving all extremities. Lab Results 08/19 05:41 WBC: 7.2 Hgb: 12.5 Hct: 37.1 Platelet: 217 Neutrophil %: 87.4 H Glucose Level: 126 H Sodium Level: 139 Potassium Level: 3.8 BUN: 8 Creatinine Lvl (s): 0.66 08/18 15:17 WBC: 11.4 H Hgb: 14.6 Hct: 43.1 Platelet: 263 Neutrophil %: 92.4 H Glucose Level: 147 H Sodium Level: 138 Potassium Level: 4.3 BUN: 9 Creatinine Lvl (s): 0.73 Imaging Results [address] CT Angiography Chest w/ Contrast Result Date: August 18, 2022 Verified By: BAIRON ALONZO MD CLINICAL STATEMENT: IMPRESSION: No evidence of pulmonary embolism or evidence of dissection. Scattered areas of subsegmental atelectasis. RECOMMENDATIONS:Unavailable CT Abdomen/Pelvis w/o Contrast Result Date: August 18, 2022 Verified By: BAIRON ALONZO MD CLINICAL STATEMENT: IMPRESSION: No acute process within the abdomen/pelvis. Small to moderate hiatal hernia. Hepatic steatosis. Other chronic and incidental findings as above. I have personally reviewed the images of this examination and agree with the resident's findings and interpretation. Assessment/Plan 1. Back pain Acute, new onset, likely side effect of Reclast *According to UpToDate, arthralgia and bone pain are adverse reactions especially after a first dose of Reclast. Usually resolves in 2-3 days but could be up to 7-14 days after infusion. *Patient reports that pain is worse with movement, at times feels like muscle spasms in her back. *Continue Toradol 30 mg IV PRN. *Continue Percocet 1 tab PO PRN for pain. *May have Flexeril as needed for muscle spasms. *Consult placed to PT and OT to evaluate and treat. *Repeat CBC and BMP in the am. 2. GERD (gastroesophageal reflux disease) Chronic *Continue Protonix 40 mg PO daily. 3. Hyperglycemia Acute, new onset, may be reaction to Reclast also *Check HgbA1c in am. 4. Hypocalcemia Acute on chronic *This may also be a side effect of Reclast *Continue calcium carbonate supplements. DVT prophylaxis with SCDs. Code status: Full Code. Labs, diagnostic test and progress notes reviewed as noted in HPI. Plan of care discussed with patient. All questions answered. Patient verbalizes understanding and is agreeable with plan of care. This case was discussed with collaborating physician, Dr. Sandeep Quan. 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 Lumpectomy Septoplasty or submucous resection, with or without cartilage scoring, contouring or replacement with graft Tubal ligation done Hysterectomy Volar plate of IP joint of finger Medications Home Medications (6) Active calcium (as carbonate) 600 mg oral tablet 600 mg = 1 tab(s), Oral, BIDM omeprazole 10 mg oral delayed release capsule Probiotic Reclast 5 mg/100 mL intravenous solution Vitamin D3 125 mcg (5000 intl units) oral capsule 125 mcg = 1 cap(s), Oral, qDay zinc (as acetate) 25 mg oral capsule 25 mg = 1 cap(s), Oral, TID Allergies Buprenex Darvon Demerol Vicodin codeine Social History Alcohol Use: Never., 08/18/2022 Home/Environment Domestic Concerns: None. Living situation: Home/Independent., 08/18/2022 Nutrition/Health Type of diet: Regular., 08/18/2022 Substance Abuse Use: Never., 08/18/2022 Tobacco Nicotine Use: Never (less than 100 in lifetime)., 08/18/2022 Immunizations No qualifying data available. Code Status Code Status - Ordered -- 08/18/22 19:25:00 EST, Full Code, Constant Order Digitally Signed by CECE TRISTAN on 08/19/2022 01:17 PM [facility]02-14-2023 Note ORIGINAL EXAMINATION: CTA OF THE CHEST 08/18/2022 4:56 pm TECHNIQUE: CTA of the chest was performed after the administration of intravenous contrast. Multiplanar reformatted images are provided for review. MIP images are provided for review. Automated exposure control, iterative reconstruction, and/or weight based adjustment of the mA/kV was utilized to reduce the radiation dose to as low as reasonably achievable. COMPARISON: None. HISTORY: ORDERING SYSTEM PROVIDED HISTORY: Reason for Exam: chest pain; suspect dissection FINDINGS: Pulmonary Arteries: Pulmonary arteries are adequately opacified for evaluation. No evidence of intraluminal filling defect to suggest pulmonary embolism. Main pulmonary artery is normal in caliber. Mediastinum: No evidence of mediastinal lymphadenopathy. The heart and pericardium demonstrate no acute abnormality. There is no acute abnormality of the thoracic aorta. Lungs/pleura: Scattered areas of subsegmental atelectasis. No focal consolidation or pulmonary edema. No evidence of pleural effusion or pneumothorax. Upper Abdomen: Limited images of the upper abdomen are unremarkable. Soft Tissues/Bones: No acute bone or soft tissue abnormality. IMPRESSION: No evidence of pulmonary embolism or evidence of dissection. Scattered areas of subsegmental atelectasis. RECOMMENDATIONS: Unavailable Interpreted by: Bairon Alonzo Preliminary Report By: Bairon Alonzo Electronically signed By Bairon Alonzo Dictated Date: 08/18/2022 4:57:58 PM Prelim Date: 08/18/2022 5:00:19 PM Sign Date: 08/18/2022 5:00:19 PM Ordering Provider: TAHIR GARZA [facility]02-14-2023 Note ORIGINAL EXAMINATION: CT OF THE ABDOMEN AND PELVIS WITHOUT CONTRAST 08/18/2022 4:46 pm TECHNIQUE: CT of the abdomen and pelvis was performed without the administration of intravenous contrast. Multiplanar reformatted images are provided for review. Automated exposure control, iterative reconstruction, and/or weight based adjustment of the mA/kV was utilized to reduce the radiation dose to as low as reasonably achievable. COMPARISON: None. HISTORY: ORDERING SYSTEM PROVIDED HISTORY: Reason for Exam: abdominal pain FINDINGS: See dedicated CTA chest for evaluation of the lung bases. The liver is mildly diffusely hypoattenuating compatible with hepatic steatosis. The spleen, adrenal glands, and pancreas are unremarkable. The gallbladder is unremarkable. No hydronephrosis or intrarenal stones. The ureters and bladder are unremarkable. Small to moderate hiatal hernia. Nondilated loops of small bowel. Scattered colonic diverticulosis without diverticulitis. Noninflamed appendix. Prior hysterectomy. Scattered phleboliths. No free intraperitoneal fluid or gas. No lymphadenopathy. Atherosclerotic nonaneurysmal abdominal aorta. Tiny fat containing umbilical hernia. Minimal dorsal spondylosis. No acute or aggressive osseous lesion. IMPRESSION: No acute process within the abdomen/pelvis. Small to moderate hiatal hernia. Hepatic steatosis. Other chronic and incidental findings as above. I have personally reviewed the images of this examination and agree with the resident's findings and interpretation. Interpreted by: Bairon Alonzo Preliminary Report By: Martin Bright Electronically signed By Bairon Alonzo Dictated Date: 08/18/2022 4:51:31 PM Prelim Date: 08/18/2022 4:55:59 PM Sign Date: 08/18/2022 4:57:47 PM Ordering Provider: TAHIR [facility]02-14-2023 Note ORIGINAL EXAMINATION: CTA OF THE CHEST 08/18/2022 4:56 pm TECHNIQUE: CTA of the chest was performed after the administration of intravenous contrast. Multiplanar reformatted images are provided for review. MIP images are provided for review. Automated exposure control, iterative reconstruction, and/or weight based adjustment of the mA/kV was utilized to reduce the radiation dose to as low as reasonably achievable. COMPARISON: None. HISTORY: ORDERING SYSTEM PROVIDED HISTORY: Reason for Exam: chest pain; suspect dissection FINDINGS: Pulmonary Arteries: Pulmonary arteries are adequately opacified for evaluation. No evidence of intraluminal filling defect to suggest pulmonary embolism. Main pulmonary artery is normal in caliber. Mediastinum: No evidence of mediastinal lymphadenopathy. The heart and pericardium demonstrate no acute abnormality. There is no acute abnormality of the thoracic aorta. Lungs/pleura: Scattered areas of subsegmental atelectasis. No focal consolidation or pulmonary edema. No evidence of pleural effusion or pneumothorax. Upper Abdomen: Limited images of the upper abdomen are unremarkable. Soft Tissues/Bones: No acute bone or soft tissue abnormality. IMPRESSION: No evidence of pulmonary embolism or evidence of dissection. Scattered areas of subsegmental atelectasis. RECOMMENDATIONS: Unavailable Interpreted by: Bairon Alonzo Preliminary Report By: Bairon Alonzo Electronically signed By Bairon Alonzo Dictated Date: 08/18/2022 4:57:58 PM Prelim Date: 08/18/2022 5:00:19 PM Sign Date: 08/18/2022 5:00:19 PM Ordering Provider: [facility]02-14-2023 Note ORIGINAL EXAMINATION: CT OF THE ABDOMEN AND PELVIS WITHOUT CONTRAST 08/18/2022 4:46 pm TECHNIQUE: CT of the abdomen and pelvis was performed without the administration of intravenous contrast. Multiplanar reformatted images are provided for review. Automated exposure control, iterative reconstruction, and/or weight based adjustment of the mA/kV was utilized to reduce the radiation dose to as low as reasonably achievable. COMPARISON: None. HISTORY: ORDERING SYSTEM PROVIDED HISTORY: Reason for Exam: abdominal pain FINDINGS: See dedicated CTA chest for evaluation of the lung bases. The liver is mildly diffusely hypoattenuating compatible with hepatic steatosis. The spleen, adrenal glands, and pancreas are unremarkable. The gallbladder is unremarkable. No hydronephrosis or intrarenal stones. The ureters and bladder are unremarkable. Small to moderate hiatal hernia. Nondilated loops of small bowel. Scattered colonic diverticulosis without diverticulitis. Noninflamed appendix. Prior hysterectomy. Scattered phleboliths. No free intraperitoneal fluid or gas. No lymphadenopathy. Atherosclerotic nonaneurysmal abdominal aorta. Tiny fat containing umbilical hernia. Minimal dorsal spondylosis. No acute or aggressive osseous lesion. IMPRESSION: No acute process within the abdomen/pelvis. Small to moderate hiatal hernia. Hepatic steatosis. Other chronic and incidental findings as above. I have personally reviewed the images of this examination and agree with the resident's findings and interpretation. Interpreted by: Bairon Alonzo Preliminary Report By: Martin Bright Electronically signed By Bairon Alonzo Dictated Date: 08/18/2022 4:51:31 PM Prelim Date: 08/18/2022 4:55:59 PM Sign Date: 08/18/2022 4:57:47 PM [facility]ing [facility] NoteHNO ID: [id number] Author: Krystle Mccarty APRN.JUANITA Service: ? Author Type: Nurse Practitioner Type: Progress Notes Filed: 06/17/2022 8:40 AM Note Text: This note was created using tradeNOWriter. Subjective Alex Alfred is a 62 year old female. Nasal Congestion Associated symptoms include congestion and ear pain. Pt c/o of cough, congestion and right ear pain x 3 weeks. She is having loss of voice due to the coughing. Denies any fevers. She has been using Mucinex and DayQuil. Symptoms are not improving. Review of Systems HENT: Positive for congestion, ear pain, postnasal drip and voice change. Respiratory: Negative. Objective BP 134/80 Pulse 106 Temp 37 ?C (98.6 ?F) Resp 16 Wt 70.3 kg (155 lb) SpO2 97% BMI 29.29 kg/m? Physical Exam HENT: Right Ear: Tympanic membrane normal. Nose: Congestion present. Mouth/Throat: Mouth: Mucous membranes are moist. Cardiovascular: Rate and Rhythm: Normal rate. Pulmonary: Breath sounds: Normal breath sounds. Neurological: Mental Status: She is alert. ASSESSMENT/PLAN: 1. Acute non-recurrent sinusitis of other sinus - ICD9: 461.8, ICD10: J01.80 - Will begin treatment with Augmentin 875 mg PO BID for days - Supportive care with plenty of fluids, rest, and analgesia prn. - Follow up in one week if symptoms persist or worsen. Krystle Mccarty APRN.CNP Medical Decision Making: Problems: Low: Acute, uncomplicated illness or injury Risk: Low: Low risk from testing/treatment Moderate: Drug management Medical Decision Making Level: [facility] History of Present illness Narrative* Krystle Mccarty APRN.CNP - 06/17/2022 8:31 AM EST This note was created using tradeNOWriter. Subjective Alex Alfred is a 62 year old female. Nasal Congestion Associated symptoms include congestion and ear pain. Pt c/o of cough, congestion and right ear painx 3 weeks. She is having loss of voice due to the coughing. Denies any fevers. She has been using Mucinex and DayQuil. Symptoms are not improving. Review of Systems HENT: Positive for congestion, ear pain, postnasal drip and voice change. Respiratory: Negative. Objective BP 134/80 Pulse 106 Temp 37 C (98.6 F) Resp 16 Wt 70.3 kg (155 lb) SpO2 97% BMI 29.29 kg/m Physical Exam HENT: Right Ear: Tympanic membrane normal. Nose: Congestion present. Mouth/Throat: Mouth: Mucous membranes are moist. Cardiovascular: Rate and Rhythm: Normal rate. Pulmonary: Breath sounds: Normal breath sounds. Neurological: Mental Status: She is alert. ASSESSMENT/PLAN: 1. Acute non-recurrent sinusitis of other sinus - ICD9: 461.8, ICD10: J01.80 - Will begin treatment with Augmentin 875 mg PO BID for days - Supportive care with plenty of fluids, rest, and analgesia prn. - Follow up in one week if symptoms persist or worsen. Krystle Mccarty APRN.CNP Medical Decision Making: Problems: Low: Acute, uncomplicated illness or injury Risk: Low: Low risk from testing/treatment Moderate: Drug management Medical Decision Making Level: 3 - Low documented in this encounterUniversity [facility]als [facility]10-25-2022 Miscellaneous Notes* Telephone Encounter - Linda Malloy LPN - 04/28/2022 10:59 AM EDT Referral faxed to Dr. Nath's office. * Telephone Encounter - Jolynn Romo APRN.CNS - 04/28/2022 7:30 AM EDT Please send referral to Dr Nath * Telephone Encounter - Radha Silveira LPN - 04/27/2022 2:25 PM EDT Images from the original note were not included. Patient calling to check if referral is in place. Patient asking to see Dr Armando Nath [facility] fax number is [phone]. Aware PCP is out of office this week. Pending consult, needsdiagnosis. Please advise Patient phone number is [phone]. Results DXA-AXIAL SKELETON (Order [id number]) Patient Info Patient Name Sex Alex Parekh ([id number]) Female 1960 02/23/2022 12:29 PM - Radiology, [place] Impression IMPRESSION: Osteoporosis, demonstrating significant interval worsening in the left femoral neck . [facility] ORG. CLASSIFICATION OF BONE MASS CLASSIFICATION T-SCORE Normal Greater than -1 Low Bone Mass Between -1 and -2.5 (Osteopenia) Osteoporosis Less than or equal to -2.5 City Plant Supervisor: EMILY Transcribe Date/Time: Feb 23 2022 12:25P Dictated by : CHANDNI BURR MD This examination was interpreted and the report reviewed and electronically signed by: CHANDNI BURR MD on Feb 23 2022 12:27PM EST Results-Findings * * *Final Report* * * DATE OF EXAM: Feb 23 2022 11:45AM [facility] [id number] - BD DXA - AXIAL SKELETON / PROCEDURE REASON: Asymptomatic postmenopausal status * * * * Physician Interpretation * * * * PROCEDURE: BD DXA - AXIAL SKELETON INDICATION: Asymptomatic postmenopausal status TECHNIQUE: Low dose AP spine and hip images COMPARISON: 01/31/2018 LUMBAR SPINE: The bone mineral density from L1 through L4 is 0.842 grams per square centimeter which yields a T-score of -1.9 . Not significantly changed . LEFT HIP: The bone mineral density of the total region of the hip is 0.797 grams per square centimeter which yields a T-score of -1.2 . . LEFT FEMORAL NECK: The bone mineral density of the femoral neck is 0.521 grams per square centimeter which yields a T-score of -3.0 . 0.053 g/sq cm worse . CHANGE IS STATISTICALLY SIGNIFICANT IN THE SPINE OR HIP IF GREATER THAN OR EQUAL TO 0.04g/cm2 Result History DXA-AXIAL SKELETON (Order #[id number]) on 02/23/2022 - Order Result History Report Result Information Status Provider Status Final result (02/23/2022 12:29 PM) Reviewed Exam Performed Date and Time 02/23/2022 11:45 AM [facility] DIVISION OF RADIOLOGY [address] [facility] [id number] DXA-AXIAL SKELETON: Result Notes Cami Manrique Ma 03/25/2022 9:20 AM EDT See phone encounter Jayro Hutchinson MD 03/25/2022 1:51 AM EDT Worsening osteoporosis in left femoral neck. T-score down to -3.0 now See if patient wants to discuss treatment options. Was prescribed Fosamax in 2019 but did not stay on or take (?). Other options are Reclast infusion once yearly or Prolia SQ injection every 6 months. Can refer to [facility]erman if prefers to get their recommendations. documented in this encounterUniversity Hospitals [facility]10-10-2022 NoteHNO ID: [id number] Author: RT Cuong(R) Service: Radiology Author Type: Technologist Type: Progress Notes Filed: 04/13/2022 9:32 AM Note Text: Radiology Service Progress Note PATIENT NAME: Alex Alfred DATE OF SERVICE: April 13, 2022 TIME: 9:22 AM PATIENT IDENTITY VERIFICATION COMPLETED USING TWO (2) IDENTIFIERS: Name and Date of confirmed by patient verbally. FALL SCREENING: Has the patient had 2 falls in the last year or 1 fall with injury or currently using an Ambulatory Assistive Device (Walker, Cane, Wheelchair, Crutches, etc.)? No PATIENT GENDER DATA: Female. status: : No status: NO. PATIENT RELEVANT IMPLANT DATA REVIEWED: Yes RADIOLOGY DEPARTMENT: General X-ray: Exam(s) Completed: Pelvis X-Ray: Pelvis with Hip Left PERIPHERAL IV DATA: Not applicable SIGNED BY: RT Cuong(R) April 13, 2022 9:22 [facility]10-10-2022 NoteHNO ID: [id number] Author: Paloma Colunga APRN.SMT MACHINE OPERATOR Service: ? Author Type: Nurse Practitioner Type: Progress Notes Filed: 04/13/2022 10:38 AM Note Text: Subjective Trauma Pertinent negatives include no chills, fever or rash. Alex Alfred is a 61 year old female who presents with left hip pain for the past 2 weeks. She denies any known injury. She states she has pain constantly. She notices increased pain with stairs/steps. She rates the pain 7-8/10. She has been taking aleve for pain. She has history of osteopenia. Review of Systems Constitutional: Negative for chills and fever. Musculoskeletal: Positive for joint pain. Negative for falls. Skin: Negative for itching and rash. BP 140/82 Pulse 93 Temp 37.1 ?C (98.8 ?F) Resp 14 Wt 72 kg (158 lb 12.8 oz) SpO2 96% BMI 30.00 kg/m? PAST MEDICAL HISTORY Diagnosis Date Allergic rhinitis, cause unspecified Basal cell carcinoma nose (Dr. Sanderson) Benign neoplasm of colon Calcaneal spur left plantar fascities Migraine without aura, without mention of intractable migraine without mention of status migrainosus Osteopenia PAST SURGICAL HISTORY Procedure Laterality Date COLONOSCOPY FLX DX W/COLLJ SPEC WHEN PFRMD 12/11/2008 Colonoscopy COLONOSCOPY FLX DX W/COLLJ SPEC WHEN PFRMD 05/11/2019 Colonoscopy KNEE SURGERY HX Right 2014 LIG/TRNSXJ FLP TUBE ABDL/VAG APPR UNI/BI 1989 OSTECTOMY CALCANEUS SPUR W/WO PLNTAR FASCIAL RLS 06/16/2011 Left foot PAST SURGICAL HISTORY OF 1992 and 1993 Had surgery to right hand ring finger x 2 PAST SURGICAL HISTORY OF 1990 The patient had part of her cervix removed due to pre cancerous cells REMOVAL OF IMPACTED TOOTH - COMPLETELY BONY 1979 [place] tooth removal SEPTOPLASTY/SUBMUCOUS RESECJ W/WO CARTILAGE GRF 1977 TOTAL ABDOMINAL HYSTERECT W/WO RMVL TUBE OVARY 1997 ALLERGIES Buprenex [Buprenorphine Hcl], Cats, Codeine, Darvocet A500 [Propoxyphene N-Acetaminophen], Demerol [Meperidine Hcl], Lactose, and Morphine MEDICATIONS naproxen sodium (ANAPROX) 220 mg tablet Take 220 mg by mouth once daily. esomeprazole (NEXIUM) 20 mg capsule Take 1 capsule by mouth daily before breakfast. 1/2 hr before meal. cetirizine (ZYRTEC) 10 mg tablet Take 1 tablet by mouth once daily. as needed for nasal congestion and drainage acyclovir (ZOVIRAX) 5 % ointment Apply 1 application to affected area five times daily. as needed Cholecalciferol, Vitamin D3, 125 mcg (5,000 unit) cap Take 1 capsule by mouth once daily. calcium combo no.2-vitamin D3 (CITRACAL-D3 SLOW RELEASE) 600 mg-12.5 mcg (500 unit) TbER Take 1,200 mg by mouth every evening AND 600 mg every morning. fluticasone (FLONASE) 50 mcg/actuation nasal spray Use 1 Pocahontas in each nostril once daily. THERAPEUTIC MULTIVITAMIN TAB Take one(1) tablet daily. predniSONE (DELTASONE) 10 mg tablet Take 4 tabs daily for 3 days, then 2 tabs daily for 3 days, then 1 tab daily for 3 days with food. FAMILY HISTORY Problem Relation Age of Onset Thyroid Mother other (osteopenia) Mother Cancer Cancer Father bladder/skin Heart Father Triple bypass Kidney Disease Father Cancer Paternal Grandmother stomach Cancer Paternal Grandfather pancreatic Cancer Paternal Aunt pancreatic Cancer Paternal Aunt kidney Cancer Paternal Aunt liver Cancer Paternal Aunt Cancer Paternal Uncle brain Cancer Paternal Uncle liver Cancer Paternal Uncle brain Social History Tobacco Use Smoking status: Never Smokeless tobacco: Never Substance Use Topics Alcohol use: No Drug use: No Objective Physical Exam Vitals and nursing note reviewed. Constitutional: Appearance: Normal appearance. Musculoskeletal: General: Tenderness present. No swelling, deformity or signs of injury. Skin: General: Skin is warm and dry. Findings: Bruising present. No erythema, lesion or rash. Neurological: Mental Status: She is alert. ASSESSMENT/PLAN: 1. Acute hip pain, left - ICD9: 719.45, ICD10: M25.552 - suspect bursitis - XR HIP GENERAL 3V PELV/AP/LAT LEFT Radiologist RESULT: No acute fracture or dislocation. Joint spaces are maintained. IMPRESSION: No acute osseous abnormality. City Plant Supervisor: EMILY Transcribe Date/Time: Apr 13 2022 10:27A Dictated by : CHRISTIANE FRANK MD - PREDNISONE 10 MG TABLET - stop aleve while on steroid - CONSULT TO ORTHOPAEDICS - Follow-up with your PCP or orthopedics in 3-5 days if symptoms have not improved or sooner if symptoms worsen - Discussed red flags and need for immediate medical evaluation if any occur. - Discussed supportive care treatment with fluids, rest and analgesia. - Discussed expected course of illness Paloma Colunga APRN.CNPUc Health10-10-2022 Instructions* Patient Instructions* Paloma Colunga APRN.CNP - 04/13/2022 10:33 AM EDT ASSESSMENT/PLAN: 1. Acute hip pain, left - ICD9: 719.45, ICD10: M25.552 - suspect bursitis - XR HIP GENERAL 3V PELV/AP/LAT LEFT Radiologist RESULT: No acute fracture or dislocation. Joint spaces are maintained. IMPRESSION: No acute osseous abnormality. City Plant Supervisor: EMILY Transcribe Date/Time: Apr 13 2022 10:27A Dictated by : CHRISTIANE FRANK MD - PREDNISONE 10 MG TABLET - CONSULT TO ORTHOPAEDICS - Follow-up with your PCP in 3-5 days if symptoms have not improved or sooner if symptoms worsen - Discussed red flags and need for immediate medical evaluation if any occur. - Discussed supportive care treatment with fluids, rest and analgesia. - Discussed expected course of illness Paloma Colunga APRN.SMT MACHINE OPERATOR Bursitis What is bursitis? Bursitis is the inflammation or irritation of the bursa. The bursa is a small sac filled with lubricating fluid, located between tissues such as bone, muscle, tendons, and skin. Bursae help to decrease friction, rubbing and irritation and help your joints move with ease. There are more than 150 bursae in your body. Bursitis occurs when a bursa becomes inflamed; this results in pain and discomfort. The pain may be gradual (building up over time) or may be sudden and severe (especially if calciumdeposits are present). What causes bursitis? Bursitis is most often caused by repetitive motions (ie, overuse); or direct, minor impact on the area (such as from such activities as repeated bumping or prolonged pressure from kneeling). Less often, bursitis is caused from a sudden, more serious injury. Other examples of the sources of bursitis include one or more of the following: Play or work activities that cause overuse or injury to the joint areas, for example: Gardening Raking Carpentry Shoveling Painting Scrubbing Sports (tennis, golf, throwing and pitching, etc.) Incorrect posture injury Stress on the soft tissues from an abnormal or poorly positioned joint or bone (such as leg length differences or arthritis in a joint) Other diseases or conditions (rheumatoid arthritis, gout, psoriasis, thyroid disease or an unusual drug reaction) and rarely, from infection Many times, the cause of bursitis is unknown. Where does bursitis occur? Bursae are located throughout the body. However, certain joints are more subject to increased pressure and repetitive use, making bursitis more likely to develop in them. These joints include the shoulders, elbows, knees, and feet. Bursae near the hip joint, particularly those on the outer side of the hip, and those in the buttocks (subjected to pressure from sitting) are also prone to bursitis. How is bursitis treated? Treatment goals include reduction in pain and inflammation, as well as preserving mobility and preventing disability and recurrence. Treatment recommendations may include a combination of rest, splints, heat and cold application. More advanced treatment options include: Nonsteroidal anti-inflammatory drugs, such as ibuprofen or naproxen Corticosteroid injections given by your health care provider. Injections work quickly to decrease the inflammation and pain. Physical therapy that includes range of motion exercises and splinting. This can be very beneficial. Surgery, when other treatments are not effective. When should you seek medical advice? Most cases of bursitis improve without any treatment over a few weeks. See your health care provider if you have any of the following signs or symptoms: You experience pain that interferes with your normal day-to-day activities or have soreness that doesn't improve despite self-care measures. You have recurrence of bursitis. You have a fever or the area affected appears red, swollen or warm. In addition, see your doctor if you have other medical conditions that may increase your risk of aninfection, or if you take medications that increase your risk of infection, such as corticosteroidsor immunosuppressants. How can you prevent bursitis? Because most cases of bursitis are caused by overuse, the best treatment is prevention. It is important to avoid or modify the activities that cause the problem. Underlying conditions such as leg length differences, improper posture or poor technique in sports or work must be corrected. Some positions, such as kneeling and sitting, significantly increase joint pressure. Apply these basic rules when performing activities: Take it slow at first and gradually build up your activity level. Use limited force and limited repetitions. Stop if unusual pain occurs. Use cushions and pads to reduce pressure. References [employer] [place] [employer]. Tendinitis and Bursitis Accessed 05/08/2014. National [employer] Skin [employer]. Bursitis and tendinitis Accessed 05/08/2014. Vincent ROCA. Chapter 281. Acute Disorders of the Joints and Bursae. In: Darisuz DSOUZA, Babatunde J,Kena O, Ana Paula DM, Dontrell RK, Leonard RIVERA, T. eds. [employer]z's Emergency Medicine: A Comprehensive Study Guide, 7e. [place], [place]: [facility] [place], operated by [facility]; 2011. Copyright 1594-0200 [facility]. All rights reserved This information is provided by the [facility] and is not intended to replace the medical advice of your doctor or health care provider. Please consult your health care provider for advice about a specific medical condition. For additional health information, please contact the Center for Consumer Health Information at the [facility] or toll-free extension [phone]. If you prefer, you may visit [email or web address] or [email or web address]. This document was last reviewed on: 2014 index#[id number] documented in this encounterUniversity Hospitals [facility] Center10-10-2022 History of Present illness Narrative* Paloma Colunga APRN.JUANITA - 04/13/2022 9:08 AM EDT Subjective Trauma Pertinent negatives include no chills, fever or rash. Alex Alfred is a 61 year old female who presents with left hip pain for the past 2 weeks. She denies any known injury. She states she has pain constantly. She notices increased pain with stairs/steps. She rates the pain 7-8/10. She has been taking aleve for pain. She has history of osteopenia. Review of Systems Constitutional: Negative for chills and fever. Musculoskeletal: Positive for joint pain. Negative for falls. Skin: Negative for itching and rash. BP 140/82 Pulse 93 Temp 37.1 C (98.8 F) Resp 14 Wt 72 kg (158 lb 12.8 oz) SpO2 96% BMI 30.00 kg/m PAST MEDICAL HISTORY Diagnosis Date Allergic rhinitis, cause unspecified Basal cell carcinoma nose (Dr. Sanderson) Benign neoplasm of colon Calcaneal spur left plantar fascities Migraine without aura, without mention of intractable migraine without mention of status migrainosus Osteopenia PAST SURGICAL HISTORY Procedure Laterality Date COLONOSCOPY FLX DX W/COLLJ SPEC WHEN PFRMD 12/11/2008 Colonoscopy COLONOSCOPY FLX DX W/COLLJ SPEC WHEN PFRMD 05/11/2019 Colonoscopy KNEE SURGERY HX Right 2014 LIG/TRNSXJ FLP TUBE ABDL/VAG APPR UNI/BI 1989 OSTECTOMY CALCANEUS SPUR W/WO PLNTAR FASCIAL RLS 06/16/2011 Left foot PAST SURGICAL HISTORY OF 1992 and 1993 Had surgery to right hand ring finger x 2 PAST SURGICAL HISTORY OF 1990 The patient had part of her cervix removed due to pre cancerous cells REMOVAL OF IMPACTED TOOTH - COMPLETELY BONY 1979 [place] tooth removal SEPTOPLASTY/SUBMUCOUS RESECJ W/WO CARTILAGE GRF 1977 TOTAL ABDOMINAL HYSTERECT W/WO RMVL TUBE OVARY 1997 ALLERGIES Buprenex [Buprenorphine Hcl], Cats, Codeine, Darvocet A500 [Propoxyphene N-Acetaminophen], Demerol [Meperidine Hcl], Lactose, and Morphine MEDICATIONS naproxen sodium (ANAPROX) 220 mg tablet Take 220 mg by mouth once daily. esomeprazole (NEXIUM) 20 mg capsule Take 1 capsule by mouth daily before breakfast. 1/2 hr before meal. cetirizine (ZYRTEC) 10 mg tablet Take 1 tablet by mouth once daily. as needed for nasal congestion and drainage acyclovir (ZOVIRAX) 5 % ointment Apply 1 application to affected area five times daily. as needed Cholecalciferol, Vitamin D3, 125 mcg (5,000 unit) cap Take 1 capsule by mouth once daily. calcium combo no.2-vitamin D3 (CITRACAL-D3 SLOW RELEASE) 600 mg-12.5 mcg (500 unit) TbER Take 1,200mg by mouth every evening AND 600 mg every morning. fluticasone (FLONASE) 50 mcg/actuation nasal spray Use 1 Pocahontas in each nostril once daily. THERAPEUTIC MULTIVITAMIN TAB Take one(1) tablet daily. predniSONE (DELTASONE) 10 mg tablet Take 4 tabs daily for 3 days, then 2 tabs daily for 3 days, then 1 tab daily for 3 days with food. FAMILY HISTORY Problem Relation Age of Onset Thyroid Mother other (osteopenia) Mother Cancer Cancer Father bladder/skin Heart Father Triple bypass Kidney Disease Father Cancer Paternal Grandmother stomach Cancer Paternal Grandfather pancreatic Cancer Paternal Aunt pancreatic Cancer Paternal Aunt kidney Cancer Paternal Aunt liver Cancer Paternal Aunt Cancer Paternal Uncle brain Cancer Paternal Uncle liver Cancer Paternal Uncle brain Social History Tobacco Use Smoking status: Never Smokeless tobacco: Never Substance Use Topics Alcohol use: No Drug use: No Objective Physical Exam Vitals and nursing note reviewed. Constitutional: Appearance: Normal appearance. Musculoskeletal: General: Tenderness present. No swelling, deformity or signs of injury. Skin: General: Skin is warm and dry. Findings: Bruising present. No erythema, lesion or rash. Neurological: Mental Status: She is alert. ASSESSMENT/PLAN: 1. Acute hip pain, left - ICD9: 719.45, ICD10: M25.552 - suspect bursitis - XR HIP GENERAL 3V PELV/AP/LAT LEFT Radiologist RESULT: No acute fracture or dislocation. Joint spaces are maintained. IMPRESSION: No acute osseous abnormality. City Plant Supervisor: EMILY Transcribe Date/Time: Apr 13 2022 10:27A Dictated by : CHRISTIANE FRANK MD - PREDNISONE 10 MG TABLET - stop aleve while on steroid - CONSULT TO ORTHOPAEDICS - Follow-up with your PCP or orthopedics in 3-5 days if symptoms have not improved or sooner if symptoms worsen - Discussed red flags and need for immediate medical evaluation if any occur. - Discussed supportive care treatment with fluids, rest and analgesia. - Discussed expected course of illness Paloma Colunga APRN.CNP documented in this encounterUniversity Hospitals Geneva [facility] Center10-04-2022 Miscellaneous Notes* Telephone Encounter - Cami Manrique Ma - 04/07/2022 9:39 AM EDT Patient sent mychart regarding this * Telephone Encounter - Lucia Pal RN - 04/02/2022 4:34 PM EDT Contacted patient and she states she has not heard from insurance yet as to which medication is covered, but would let us know. Lucia Pal RN * Telephone Encounter - Jolynn Romo APRN.CNS - 03/31/2022 7:44 AM EDT Jayro Hutchinson MD OOO. Does she know which medication is covered by her insurance? * Telephone Encounter - Cami Manrique Ma - 03/25/2022 11:26 AM EDT Spoke to patient, she said that Fosamax caused worsening heartburn. She is going to check with insurance regarding coverage for reclast vs prolia, but wanted to know if you had a preference of one over the other? * Telephone Encounter - Cami Manrique Ma - 03/25/2022 9:18 AM EDT ----- Message from Jyaro Hutchinson MD sent at 03/25/2022 1:51 AM EDT ----- Worsening osteoporosis in left femoral neck. T-score down to -3.0 now See if patient wants to discuss treatment options. Was prescribed Fosamax in 2019 but did not stay on or take (?). Other options are Reclast infusion once yearly or Prolia SQ injection every 6 months. Can refer to jackerman if prefers to get their recommendations. documented in this encounterUniversity Hospitals Geneva [facility] Center08-22-2022 History of Present illness Narrative* Jake Hernandez, RT(R) - 02/23/2022 11:30 AM EDT Radiology Service Progress Note PATIENT NAME: Alex Alfred DATE OF SERVICE: February 23, 2022 TIME: 11:31 AM PATIENT IDENTITY VERIFICATION COMPLETED USING TWO (2) IDENTIFIERS: Name and Date of confirmedby patient verbally. FALL SCREENING: Has the patient had 2 falls in the last year or 1 fall with injury or currently using an Ambulatory Assistive Device (Walker, Cane, Wheelchair, Crutches, etc.)? No PATIENT GENDER DATA: Female. status: : No status: NO. PATIENT RELEVANT IMPLANT DATA REVIEWED: Not Applicable RADIOLOGY DEPARTMENT: Bone Density PERIPHERAL IV DATA: Not applicable SIGNED BY: RT Calvin(R) February 23, 2022 11:31 AM documented in this encounterUniversity Hospitals Geneva Medical Center08-19-2022 Instructions* Patient Instructions* Jayro Hutchinson MD - 02/20/2022 8:41 AM EDT BONE MINERAL DENSITY PATIENT INSTRUCTIONS Bone mineral density testing measures the amount of calcium in certain parts of your bones. This information determines how strong your bones are. The test is used to detect osteoporosis, a disease in which the bone's mineral content and density are low, increasing a person's risk of fractures. Thelumbar spine (lower back) and the hip are the skeletal sites usually examined. For the test, remember that: 1. You cannot take this test if you are . 2. Eat a normal diet on the day of the test. 3. Take your medications as you normally would. 4. DO NOT take calcium supplements (such as Tums) for 24 hours before the test. 5. On the day of the test, leave valuables (jewelry or credit cards) at home. 6. The test should be performed prior to oral, rectal or IV contrast studies, or at least 7 days after any of these studies. For the test, you may be asked to wear a hospital gown. You will lie on your back, on a padded table, in a comfortable position. Generally, you can resume your usual activities immediately. documented in this encounterUniversity Hospitals Geneva Medical Center08-19-2022 History of Present illness Narrative* Jayro Hutchinson MD - 02/20/2022 8:09 AM EDT This note was created using tradeNOWriter. Subjective Alex Alfred is a 61 year old female. HISTORY Alex Alfred is a 61 year old lady here for yearly exam and follow up appointment. Bladder issues--when needs to go, it is all of a sudden and can be incontinent. Can be daily. Avoids caffeine (insomnia). Already has tried scheduled toileting--helps some to keep bladder empty. Sometimes within two hours really has to go. Drinks a lot of water. Avoids drinking much water after 8 to avoid having to urinate too much at night. Trouble wit hsleep maintenance. Still get hot flashes. Noted issues with knees if sits for too long. GERD controlled with Nexium daily. Allergies adequately controlled with OTC meds. PAST MEDICAL HISTORY Diagnosis Date Allergic rhinitis, cause unspecified Basal cell carcinoma nose (Dr. Sanderson) Benign neoplasm of colon Calcaneal spur left plantar fascities Migraine without aura, without mention of intractable migraine without mention of status migrainosus Osteopenia Current Outpatient Medications Medication Sig naproxen sodium (ALEVE) 220 mg tablet Take 220 mg by mouth once daily. acyclovir (ZOVIRAX) 5 % ointment Apply 1 application to affected area five times daily. as needed Cholecalciferol, Vitamin D3, 125 mcg (5,000 unit) cap Take 1 capsule by mouth once daily. calcium combo no.2-vitamin D3 (CITRACAL-D3 SLOW RELEASE) 600 mg-12.5 mcg (500 unit) TbER Take 1,200mg by mouth every evening AND 600 mg every morning. esomeprazole (NEXIUM) 20 mg capsule Take 1 capsule by mouth daily before breakfast. 1/2 hr before meal. cetirizine (ZYRTEC) 10 mg tablet Take 1 tablet by mouth once daily. as needed for nasal congestion and drainage fluticasone (FLONASE) 50 mcg/actuation nasal spray Use 1 Pocahontas in each nostril once daily. THERAPEUTIC MULTIVITAMIN TAB Take one(1) tablet daily. pantoprazole DR (PROTONIX) 20 mg tablet Take 1 tablet by mouth daily before breakfast. montelukast (SINGULAIR) 10 mg tablet Take 10 mg by mouth daily at bedtime. ASPIRIN LOW DOSE ORAL Take by mouth once daily. No current facility-administered medications for this visit. ALLERGIES Allergen Reactions Buprenex [Buprenorp* numbness Cats Codeine tachycardia Darvocet A500 [Prop* numbness Demerol [Meperidine* numbness Lactose Diarrhea, GI Upset Morphine numbness FAMILY HISTORY Problem Relation Age of Onset Thyroid Mother other (osteopenia) Mother Cancer Cancer Father bladder/skin Heart Father Triple bypass Kidney Disease Father Cancer Paternal Grandmother stomach Cancer Paternal Grandfather pancreatic Cancer Paternal Aunt pancreatic Cancer Paternal Aunt kidney Cancer Paternal Aunt liver Cancer Paternal Aunt Cancer Paternal Uncle brain Cancer Paternal Uncle liver Cancer Paternal Uncle brain Social History Tobacco Use Smoking status: Never Smokeless tobacco: Never Substance Use Topics Alcohol use: No Drug use: No Review of Systems Objective BP 132/72 Pulse 69 Ht 154.9 cm (5' 1 ) Wt 69.4 kg (153 lb) SpO2 97% BMI 28.91 kg/m Last 5 Encounter Wt Readings: Date: Wt: 02/20/2022 69.4 kg (153 lb) 11/18/2021 72.1 kg (159 lb) 02/11/2021 66.7 kg (147 lb) 01/26/2020 70.3 kg (155 lb) 09/14/2019 72.1 kg (159 lb) No waist measurement recorded Estimated body mass index is 28.91 kg/m as calculated from the following: Height as of this encounter: 154.9 cm (5' 1 ). Weight as of this encounter: 69.4 kg (153 lb). Last 5 Encounter BP Readings: Date: BP: 02/20/2022 132/72 11/18/2021 138/82 02/11/2021 122/70 01/26/2020 122/78 09/14/2019 132/80 Physical Exam Vitals reviewed. Constitutional: Appearance: She is well-developed. HENT: Head: Normocephalic and atraumatic. Right Ear: External ear normal. Left Ear: External ear normal. Nose: Nose normal. Eyes: Conjunctiva/sclera: Conjunctivae normal. Neck: Thyroid: No thyromegaly. Cardiovascular: Rate and Rhythm: Normal rate and regular rhythm. Pulses: Normal pulses. Heart sounds: Normal heart sounds. No murmur heard. No friction rub. No gallop. Pulmonary: Effort: Pulmonary effort is normal. Breath sounds: Normal breath sounds. Abdominal: General: Bowel sounds are normal. There is no distension. Palpations: Abdomen is soft. There is no mass. Tenderness: There is no abdominal tenderness. Musculoskeletal: General: No deformity. Normal range of motion. Lymphadenopathy: Cervical: No cervical adenopathy. Skin: General: Skin is warm and dry. Coloration: Skin is not jaundiced or pale. Findings: No rash. Neurological: General: No focal deficit present. Mental Status: She is alert and oriented to person, place, and time. Cranial Nerves: No cranial nerve deficit. Sensory: No sensory deficit. Motor: No abnormal muscle tone. Coordination: Coordination normal. Deep Tendon Reflexes: Reflexes normal. Psychiatric: Mood and Affect: Mood normal. Behavior: Behavior normal. Thought Content: Thought content normal. Judgment: Judgment normal. No labs drawn for today's appointment Last labs: Component Latest Ref Rng & Units 03/30/2018 01/25/2019 02/11/2021 Protein, Total 6.3 - 8.0 g/dL 7.0 7.8 Albumin 3.9 - 4.9 g/dL 4.2 4.7 Calcium 8.5 - 10.2 mg/dL 9.4 10.0 Bilirubin, Total 0.2 - 1.3 mg/dL 0.3 0.5 Alkaline Phosphatase 34 - 123 U/L 100 102 AST 13 - 35 U/L 20 26 Glucose 74 - 99 mg/dL 85 97 BUN 7 - 21 mg/dL 18 12 Creatinine 0.58 - 0.96 mg/dL 0.75 0.72 Sodium 136 - 144 mmol/L 140 140 Potassium 3.7 - 5.1 mmol/L 4.3 4.4 Chloride 97 - 105 mmol/L 102 101 CO2 22 - 30 mmol/L 25 24 Anion Gap 9 - 18 mmol/L 13 15 ALT 7 - 38 U/L 13 18 eGFR- >60 >60 eGFR-All Other Races . >60 >60 WBC 3.70 - 11.00 k/uL 7.97 8.42 RBC 3.90 - 5.20 m/uL 5.10 5.25 (H) Hemoglobin 11.5 - 15.5 g/dL 14.6 14.9 Hematocrit 36.0 - 46.0 % 47.1 (H) 47.6 (H) MCV 80.0 - 100.0 fL 92.4 90.7 MCH 26.0 - 34.0 pG 28.6 28.4 MCHC 30.5 - 36.0 g/dL 31.0 31.3 RDW-CV 11.5 - 15.0 % 12.8 13.0 Platelet Count 150 - 400 k/uL 299 321 MPV 9.0 - 12.7 fL 11.4 11.6 Absolute nRBC <0.01 k/uL <0.01 <0.01 Magnesium 1.7 - 2.3 mg/dL 2.2 2.5 (H) TSH 0.400 - 5.500 uU/mL 1.020 Vitamin D 25 Hydroxy 31.0 - 80.0 ng/mL 71.6 Assessment and Plan ASSESSMENT/PLAN: 1. Routine medical exam - ICD9: V70.0, ICD10: Z00.00 (primary diagnosis) - Counseled on healthy diet and regular exercise - Calcium intake with supplements or by diet of 1000 mg/day for under 50, 1200- 1500 mg/day for 50+ - Follow up for annual exam in one year 2. Irritable bladder - ICD9: 596.89, ICD10: N32.89 Will continue present management with avoiding caffeine, scheduled toileting every couple hours or so as able and cut back come on water intake from usual 64 ounces daily. Will let me know if wants to try med such as ditropan (discussed GoodRx in case insurance does not cover meds well) 3. Nasal congestion - ICD9: 478.19, ICD10: R09.81 Continue present management. - CETIRIZINE 10 MG TABLET 4. Vitamin D deficiency - ICD9: 268.9, ICD10: E55.9 Continue present management. - VITAMIN D 25 HYDROXY 5. Non-seasonal allergic rhinitis, unspecified trigger - ICD9: 477.8, ICD10: J30.89 Continue present management. Has not needed Singulair for some time. 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 Further evaluation and treatment as indicated. 6. Lipid screening - ICD9: V77.91, ICD10: Z13.220 Check today. Further evaluation and treatment as indicated. - LIPID PANEL BASIC 7. Asymptomatic postmenopausal status - ICD9: V49.81, ICD10: Z78.0 Further evaluation and treatment as indicated. Continue present management. - DXA-AXIAL SKELETON 8. Encounter for long-term current use of medication - ICD9: V58.69, ICD10: Z79.899 - COMP METABOLIC PANEL - MAGNESIUM BLD - CBC 9. Breast cancer screening by mammogram - ICD9: V76.12, ICD10: Z12.31 - Set up for mammogram, yearly mammogram recommended - Follow up for annual exam in one year. - SEMAJ SCREENING Jayro Hutchinson MD documented in this encounterUniversity Hospitals Geneva [facility] Center05-17-2022 History of Present illness Narrative* Jolynn Romo APRN.POWERHOUSE MECHANIC HELPER - 11/18/2021 1:37 PM EDT SUBJECTIVE: SHINGRIX VACCINE(1 of 2) Never done COVID-19 VACCINE(4 - Booster for Pfizer series) due on 10/03/2021 HPI Alex Alfred is a 61 year old female. PMH significant for ACTIVE PROBLEM LIST Allergic Rhinitis Calcaneal Spur Migraine Without Aura Special Screening for Malignant Neoplasms, Colon Benign Neoplasm of Colon Internal Hemorrhoids Without Mention of Complication Achilles Tendinitis Osteopenia Breast Screening Alex Alfred reports undergoing meniscectomy 10 years ago on the right for years ago on the left. Orthopedic physician was Dr Fletcher. She notes playing softball for about 10 years, squatting as a catcher. 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 Now with chronic right and left knee pain. Right currently worse than left. She notes that she had some swelling and increased pain within the last week. Feeling improved with ibuprofen and icing. She notes her right knee feels as if it will giveway at times but has not completely done this. No falls. No locking. No known injury to cause increased discomfort. No increased activity. Notes she feels some tightness on her posterior leg. She notes the pain is increased with taking stairs going down is worse and going up. Some increased pain with getting up and down off of the floor. Review of Systems Constitutional: Negative. Musculoskeletal: Positive for arthralgias. Objective BP 138/82 Pulse 76 Resp 16 Wt 72.1 kg (159 lb) BMI 30.04 kg/m Physical Exam Vitals and nursing note reviewed. Constitutional: Appearance: Normal appearance. HENT: Head: Normocephalic and atraumatic. Eyes: Conjunctiva/sclera: Conjunctivae normal. Cardiovascular: Rate and Rhythm: Normal rate. Pulmonary: Effort: Pulmonary effort is normal. Musculoskeletal: Left knee: No swelling, deformity, effusion, erythema, ecchymosis or crepitus. Tenderness present over the medial joint line. No patellar tendon tenderness. Normal pulse. Right lower leg: No edema. Left lower leg: No edema. Skin: General: Skin is warm and dry. Neurological: General: No focal deficit present. Mental Status: She is alert and oriented to person, place, and time. ALLERGIES Allergen Reactions Buprenex [Buprenorp* numbness Cats Codeine tachycardia Darvocet A500 [Prop* numbness Demerol [Meperidine* numbness Lactose Diarrhea, GI Upset Morphine numbness MEDCIATIONS acyclovir (ZOVIRAX) 5 % ointment, Apply 1 application to affected area five times daily. as needed Cholecalciferol, Vitamin D3, 125 mcg (5,000 unit) cap, Take 1 capsule by mouth once daily. calcium combo no.2-vitamin D3 (CITRACAL-D3 SLOW RELEASE) 600 mg-12.5 mcg (500 unit) TbER, Take 1,200 mg by mouth every evening AND 600 mg every morning. esomeprazole (NEXIUM) 20 mg capsule, Take 1 capsule by mouth daily before breakfast. 1/2 hr before meal. cetirizine (ZYRTEC) 10 mg tablet, Take 1 tablet by mouth once daily. as needed for nasal congestionand drainage fluticasone (FLONASE ALLERGY RELIEF) 50 mcg/actuation nasal spray, Use 1 Pocahontas in each nostril oncedaily. THERAPEUTIC MULTIVITAMIN TAB, Take one(1) tablet daily. meloxicam (MOBIC) 15 mg tablet, Take 1 tablet by mouth once daily. for pain for a week or tow, thendaily as needed Take with food. pantoprazole DR (PROTONIX) 20 mg tablet, Take 1 tablet by mouth daily before breakfast. montelukast (SINGULAIR) 10 mg tablet, Take 10 mg by mouth daily at bedtime. ASPIRIN LOW DOSE ORAL, Take by mouth once daily. PAST MEDICAL HISTORY Diagnosis Date Allergic rhinitis, cause unspecified Basal cell carcinoma nose (Dr. Sanderson) Benign neoplasm of colon Calcaneal spur left plantar fascities Migraine without aura, without mention of intractable migraine without mention of status migrainosus Osteopenia Social History Tobacco Use Smoking status: Never Smoker Smokeless tobacco: Never Used Substance Use Topics Alcohol use: No Drug use: No ASSESSMENT/PLAN: 1. Chronic pain of right knee - ICD9: 719.46, 338.29, ICD10: M25.561, G89.29 (primary diagnosis) - MELOXICAM 15 MG TABLET - CONSULT TO ORTHOPAEDICS - XR KNEE GENERAL 4V AP BOTH/PA BOTH/LAT/MERC RIGHT - CONSULT TO PHYSICAL THERAPY 2. Need for COVID-19 vaccine - ICD9: V04.89, ICD10: Z23 - [employer] COVID-19 VACCINE, AGE 12+ YR (THORPE TOP) 3. Recurrent cold sores - ICD9: 054.9, ICD10: B00.1 - ACYCLOVIR 5 % TOPICAL OINTMENT Jolynn Romo APRN.CNS Medical Decision Making: Problems: Moderate: 1+ chronic illnesses with change Data: Unique test(s) ordered: 1 Risk: Moderate: Drug management Medical Decision Making Level: 4 - Moderate documented in this encounterUniversity Hospitals Geneva [facility] Center05-10-2022 Miscellaneous Notes* Telephone Encounter - Charline Gamble LPN - 11/11/2021 1:47 PM EDT Spoke to Patient, she is unavailable until next week. Scheduled appt 11/18 w/ACTIVITIES OFFICER. Charline Gamble LPN documented in this encounterUniversity Hospitals Geneva [facility] Center01-03-2022 Miscellaneous Notes* Telephone Encounter - Jolynn Romo APRN.CNS - 07/07/2021 7:18 AM EST filed * Telephone Encounter - Suad Rodgers Pss - 07/03/2021 8:55 AM EST Patient sent mychart request for a mammogram. Please place order and let us know when we can call and schedule. Thank you Suad Rodgers Pss documented in this encounterUniversity Hospitals Geneva [facility] CenterEvalusouth [facility]* Diagnosis Encounter for screening for malignant neoplasm of breast, unspecified screening modality- Primary documented in this encounter [facility]* Diagnosis Chronic pain of right knee- Primary Need for COVID-19 vaccine Recurrent cold sores Herpes simplex without mention of complication [facility] Diagnosis Routine medical exam- Primary Routine general medical examination at a health care facility Irritable bladder Other specified disorders of bladder Nasal congestion Other diseases of nasal cavity and sinuses Vitamin D deficiency Unspecified vitamin D deficiency Non-seasonal allergic rhinitis, unspecified trigger Lipid screening Screening for lipoid disorders Asymptomatic postmenopausal status Encounter for long-term current use of medication Breast cancer screening by mammogram documented in this encounter [facility]* Diagnosis Asymptomatic postmenopausal status [facility]* Diagnosis Acute hip pain, left- Primary [facility]* Diagnosis Age-related osteoporosis without current pathological fracture- Primary Senile osteoporosis [facility]* Diagnosis Acute non-recurrent sinusitis of other sinus- Primary [facility]* Diagnosis Acute midline thoracic back pain- Primary Hepatic steatosis Other chronic nonalcoholic liver disease Age-related osteoporosis without current pathological fracture Senile osteoporosis Vitamin D deficiency Unspecified vitamin D deficiency Encounter for long-term current use of medication Encounter for immunization Need for other specified prophylactic vaccination against single bacterial disease [facility]* Diagnosis Sore throat- Primary Acute pharyngitis Rhinosinusitis Unspecified sinusitis (chronic) [facility]* Diagnosis Routine medical exam- Primary Routine general medical examination at a health care facility Recurrent cold sores Herpes simplex without mention of complication Breast cancer screening by mammogram Age-related osteoporosis without current pathological fracture Senile osteoporosis Toe pain, bilateral Elevated BP without diagnosis of hypertension Encounter for long-term current use of medication Vitamin D deficiency Unspecified vitamin D deficiency Elevated LDL cholesterol level Pure hypercholesterolemia documented in this encounter [facility] CenterHospital course Narrative No data available for this section [facility] Reason for referral (narrative)* Diagnostic Procedure Only (Routine) - Closed Specialty Diagnoses / Procedures Referred By Eliazar bernal Referred To Contact [facility] Diagnoses Encounter for screening for malignant neoplasm of breast, unspecified screening modality Procedures SEMAJ SCREENING SCREENING MAMMOGRAPHY BI 2-VIEW BREAST INC CAD Jolynn Romo, GRAIN I FARMWORKER.POWERHOUSE MECHANIC HELPER [address] [place] [address] [facility] [address] [place] [address] Referral ID Status Reason Start Date Expiration Date V isits Requested Visits Authorized [id number] Closed Auto-Generate d Referral 07/07/2021 08/02/2022 1 1 [facility] Reason for Referral Status Reason Specialty Diagnoses / Procedures Referre d By Contact Referred To Contact Closed Cardiology Diagnoses Abnormal EKG Procedures Echo Stress Test Oj Tillman MD [address] [place] [address] Specialty Diagnoses / Procedures Referred By Eliazar bernal Referred To Contact [facility] Diagnoses Chronic pain of right knee Procedures CONSULT TO PHYSICAL THERAPY PHYSICAL THERAPY EVALUATION HIGH COMPLEX 45 MINS Jolynn Romo, GRAIN I FARMWORKER.POWERHOUSE MECHANIC HELPER [address] [place] [address] [facility] [address] [place] [address] Referral ID Status Reason Start Date Expiration Date Visits Requested Visits Authorized [id number] Pending Review Auto-Generat ed Referral 11/18/2021 11/18/2022 1 1 Specialty Diagnoses / Procedures Referred By Eliazar bernal Referred To Contact [facility] Diagnoses Chronic pain of right knee Procedures XR KNEE GENERAL 4V AP BOTH/PA BOTH/LAT/MERC RIGHT RADIOLOGIC EXAM KNEE COMPLETE 4/MORE VIEWS Jolynn Romo, GRAIN I FARMWORKER.POWERHOUSE MECHANIC HELPER [address] [place] [address] Xr Imaging Referral ID Status Reason Start Date Expiration Date Visits Requested Visits Authorized [id number] Pending Review Auto-Generat ed Referral 11/18/2021 12/18/2022 1 1 Specialty Diagnoses / Procedures Referred By Contac t Referred To Contact Orthopedics Diagnoses Chronic pain of right knee Procedures CONSULT TO ORTHOPAEDICS OFFICE/OUTPATIENT [facility] 60-74 MINUTES Jolynn Romo, GRAIN I FARMWORKER.POWERHOUSE MECHANIC HELPER [address] [place] [address] Referral ID Status Reason Start Date Expiration Date Visits Requested Visits Authorized [id number] Authorized PCP Requested Referral 11/18/2021 11/18/2022 1 1 Specialty Diagnoses / Procedures Referred By Contac t Referred To Contact [facility] Diagnoses Breast cancer screening by mammogram Procedures SEMAJ SCREENING SCREENING MAMMOGRAPHY BI 2-VIEW BREAST INC CAD Jayro Hutchinson MD [address] [place] [address] [facility] [address] [place] [address] Referral ID Status Reason Start Date Expiration Date Visits Requested Visits Authorized [id number] Authorized Auto-Generat ed Referral 2 10/01/2022 3 1 Specialty Diagnoses / Procedures Referred By Contac t Referred To Contact Orthopedics Diagnoses Acute hip pain, left Procedures CONSULT TO ORTHOPAEDICS OFFICE/OUTPATIENT [facility] 60-74 MINUTES Paloma Colunga, GRAIN I FARMWORKER.SMT MACHINE OPERATOR [address] [place] [address] Referral ID Status Reason Start Date Expiration Date Visits Requested Visits Authorized [id number] Authorized PCP Requested Referral 2 04/13/2023 1 1 Specialty Diagnoses / Procedures Referred By Contac t Referred To Contact XR IMAGING Diagnoses Acute hip pain, left Procedures XR HIP GENERAL 3V PELV/AP/LAT LEFT RADEX HIP UNILATERAL WITH PELVIS 2-3 VIEWS Paloma Colunga, BRENDAN.SMT MACHINE OPERATOR [address] [place] [address] Xr Imaging Referral ID Status Reason Start Date Expiration Date V isits Requested Visits Authorized [id number] Closed Auto-Generate d Referral 04/13/2022 05/13/2023 1 1 Specialty Diagnoses / Procedures Referred By Contac t Referred To Contact Endocrinology Diagnoses Age-related osteoporosis without current pathological fracture Procedures CONSULT TO ENDOCRINOLOGY OFFICE/OUTPATIENT NEW HIGH MDM 60-74 MINUTES Jolynn Romo, GRAIN I FARMWORKER.POWERHOUSE MECHANIC HELPER [address] [place] [address] Referral ID Status Reason Start Date Expiration Date Visits Requested Visits Authorized [id number] Authorized PCP Requested Referral 2 04/27/2023 1 1 Referral ID Status Reason Start Date Expiration Date Visits Requested Visits Authorized [id number] Authorized Auto-Generat ed Referral 03/01/2023 10/04/2023 3 1 Assessments Diagnosis Abnormal EKG Nonspecific abnormal electrocardiogram (ECG) (EKG) Advance Directives No Advanced Directives Records FoundDocuments on File Type Date Recorded 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 Advance Directives and Living Will Power of Service Supervisor Documents on File Type Date Recorded 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 Advance Directive(s) 05/11/2019 9:30 AM Documents on File Type Date Recorded 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 Advance Directive(s) 05/11/2019 9:30 AM Summary Purpose Family History No Family History Records FoundNo Family History Records FoundNo Family History Records Found Additional Source Comments INFORMATION SOURCE (unrecogn ized section and content) DATE CREATED AUTHOR AUTHOR'S ORGANIZ ATION 09/12/2022 [facility] ([place]) DATE CREATED AUTHOR AUTHOR'S ORGANIZ ATION 04/09/2023 [facility] Source Comments (unrecognize d section and content) In the event this informatio n is protected by the Federal Confidentiality of Alcohol and Drug Abuse Patient Records regulations: The Federal rules restrict any use of the information to criminally investigate or prosecute any alcohol or drug abuse patient.[facility] the event this information is protected by the Federal Confidentiality of Alcohol and Drug Abuse Patient Records regulations: The Federal rules restrict any use of the information to criminally investigate or prosecute any alcohol or drug abuse patient.[facility] Center[facility] the event this information is protected by the Federal Confidentiality of Alcohol and Drug Abuse Patient Records regulations: The Federal rules restrict any use of the information to criminally investigate or prosecute any alcohol or drug abuse patient.[facility] Center[facility] the event this information is protected by the Federal Confidentiality of Alcohol and Drug Abuse Patient Records regulations: The Federal rules restrict any use of the information to criminally investigate or prosecute any alcohol or drug abuse patient.[facility] Center[facility] the event this information is protected by the Federal Confidentiality of Alcohol and Drug Abuse Patient Records regulations: The Federal rules restrict any use of the information to criminally investigate or prosecute any alcohol or drug abuse patient.[facility] Center[facility] the event this information is protected by the Federal Confidentiality of Alcohol and Drug Abuse Patient Records regulations: The Federal rules restrict any use of the information to criminally investigate or prosecute any alcohol or drug abuse patient.[facility] Center[facility] the event this information is protected by the Federal Confidentiality of Alcohol and Drug Abuse Patient Records regulations: The Federal rules restrict any use of the information to criminally investigate or prosecute any alcohol or drug abuse patient.[facility] CenterIn the event this information is protected by the Federal Confidentiality of Alcohol and Drug Abuse Patient Records regulations: The Federal rules restrict any use of the information to criminally investigate or prosecute any alcohol or drug abuse patient.[facility] CenterIn the event this information is protected by the Federal Confidentiality of Alcohol and Drug Abuse Patient Records regulations: The Federal rules restrict any use of the information to criminally investigate or prosecute any alcohol or drug abuse patient.[facility] CenterIn the event this information is protected by the Federal Confidentiality of Alcohol and Drug Abuse Patient Records regulations: The Federal rules restrict any use of the information to criminally investigate or prosecute any alcohol or drug abuse patient.[facility] CenterIn the event this information is protected by the Federal Confidentiality of Alcohol and Drug Abuse Patient Records regulations: The Federal rules restrict any use of the information to criminally investigate or prosecute any alcohol or drug abuse patient.[facility] CenterIn the event this information is protected by the Federal Confidentiality of Alcohol and Drug Abuse Patient Records regulations: The Federal rules restrict any use of the information to criminally investigate or prosecute any alcohol or drug abuse patient.[facility] CenterIn the event this information is protected by the Federal Confidentiality of Alcohol and Drug Abuse Patient Records regulations: The Federal rules restrict any use of the information to criminally investigate or prosecute any alcohol or drug abuse patient.[facility] CenterIn the event this information is protected by the Federal Confidentiality of Alcohol and Drug Abuse Patient Records regulations: The Federal rules restrict any use of the information to criminally investigate or prosecute any alcohol or drug abuse patient.[facility] CenterIn the event this information is protected by the Federal Confidentiality of Alcohol and Drug Abuse Patient Records regulations: The Federal rules restrict any use of the information to criminally investigate or prosecute any alcohol or drug abuse patient.[facility] CenterIn the event this information is protected by the Federal Confidentiality of Alcohol and Drug Abuse Patient Records regulations: The Federal rules restrict any use of the information to criminally investigate or prosecute any alcohol or drug abuse patient.[facility] Reason for Visit (unrecogniz ed section and content) Reason Comments Right Knee Pain Reason Onset Date Comments Physical Radiology [facility] Reason Comments Trauma Left hip injury x 2 weeks Reason Comments Nasal Congestion drainage, right ear pain x 3 weeks Reason Comments Results Reason Comments Orders Reason Comments Hema [facility] PT update Reason Comments Hospital F/U Adverse reaction to reclast Reason Comments Cough Pt reported nasal co ngestion, throat pain x2 wks. 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 Relationship Specialty Start Date End Date Jayro Hutchinson MD [address] [place] [address] [place] [address] PCP - General 04/27/02 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 Relationship Specialty Start Date End Date Jayro Hutchinson MD [address] [place] [address] [place] [address] PCP - General 04/27/02 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 Relationship Specialty Start Date End Date Jayro Hutchinson MD [address] [place] [address] [place] [address] PCP - General 04/27/02 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 Relationship Specialty Start Date End Date Jayro Hutchinson MD [address] [place] [address] [place] [address] PCP - General 04/27/02 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 Relationship Specialty Start Date End Date Jayro Hutchinson MD [address] [place] [address] [place] [address] PCP - General 04/27/02 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 Relationship Specialty Start Date End Date Jayro Hutchinson MD [address] [place] [address] PCP - General 04/27/02 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 Relationship Specialty Start Date End Date Jayro Hutchinson MD [address] [place], [place] [address] PCP - General 04/27/02 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 Relationship Specialty Start Date End Date Jayro Hutchinson MD [address] [place] [address] PCP - General 04/27/02 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 Relationship Specialty [place] [address] [place] [address] PCP - General 04/27/02 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 Relationship Specialty Start Date End Date Jayro Hutchinson MD [address] [place] [address] PCP - General 04/27/02 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 Relationship Specialty Start Date End Date Jayro Hutchinson MD [address] [place] [address] PCP - General 04/27/02 Care Team (unrecognized sect ion and content) Care Team Personnel Name: Zachariah Sheikh PT Position: P3 Scheduling - [employer] Advanced Member Role: Other Name: JAYRO HUTCHINSON MD Member Role: Primary Care Physician Address: Address: [address] [place], [place] [address] Name: SHELLI Salazar Position: AO RN Member Role: ED RN Name: Paola Gómez Coder Position: HIM: Coders Member Role: HIM: Coders Name: Deion Stoddard RN Position: AO RN Member Role: RN Name: TAHIR GARZA MD Position: ED Physician Member Role: ED Physician Address: Address: [address] [place], [place] [address] [id number]- Care Team Related Persons Name: MARIZA WHITE FOR RECORDS PERTAINING TO PATIENTS WHO ARE OR HAVE BEEN ENROLLED IN A CHEMICAL DEPENDENCY/SUBSTANCEABUSE PROGRAM, SOME INFORMATION MAY BE OMITTED. This clinical summary was aggregated from multiple sources. Caution should be exercised in using it in the provision of clinical care. This summary normalizes information from multiple sources, and as a consequence, information in this document may materially change the coding, format and clinical context of patient data. In addition, data may be omitted in some cases. CLINICAL DECISIONS SHOULD BE BASED ON THE PRIMARY CLINICAL RECORDS. [facility]. provides no warranty or guarantee of the accuracy or completeness of information in this document."
[2023-08-21 09:19] LABS: AST(SGOT) 15 U/L (15-37); Alanine Aminotransfer ALT/SGPT 23 U/L (13-56); Albumin, Serum 3.6 g/dL (3.2-5.0); Alkaline Phosphatase 78 U/L (45-117); Anion Gap 4 (5-15); BUN 10 mg/dL (7-18); BUN/Creat Ratio 12.5 RATIO (10-20); Calcium,Total 9.4 mg/dL (8.5-10.1); Chloride 110 mmol/L (98-107); EST Glomerular Filtration Rate 76 mL/min (>60); Est Glom Filt Rate - Afr Amer 92 mL/min (>60); Globulin 3.7 g/dL (2.2-4.2); Glucose 103 mg/dL (74-106); Potassium 4.3 mmol/L (3.5-5.1); Protein, Total 7.3 g/dL (6.4-8.2); Sodium Level 142 mmol/L (136-145)
[2023-08-23 08:27] LABS: PTHIN 70.8 pg/mL (18.4-80.1)
[2023-08-23 08:28] LABS: Vitamin D,25 Hydroxy 58.2 ng/mL
== END | disposition home or self-care (01) ==
LOC: LAB 07:43
PROVIDERS: PCP Internal Medicine; Referring Provider Internal Medicine Endocrinology, Diabetes & Metabolism; Visit Provider Internal Medicine Endocrinology, Diabetes & Metabolism
DX: M81.0 Age-related osteoporosis without current pathological fracture (principal); E55.9 Vitamin D deficiency, unspecified
CPT/HCPCS: 36415; 80053; 82306; 83970